=== PATIENT | female | born 1995 | race Caucasian/White ===

== ENCOUNTER 2022-04-18 09:44 | Outpatient (CLI) | payer OTHER, SELFPAY ==
--- NOTE | 2022-04-18 10:00 | CRLHL7_ITS ---
For Patients: As a result of the Century Cures Act, medical imaging exams and procedure reports are released immediately into your electronic medical record. You may view this report before your referring provider. If you have questions, please contact your health care provider. Indication: Otorrhea. Technique: CT of the temporal bones performed without IV contrast. Comparison: None relevant available at this institution. Findings: RIGHT: Opacification of the external auditory canal along the tympanic membrane. No adjacent osseous erosion. The tympanic membrane is not thickened. The mesotympanum is well aerated. The scutum is sharp. Ossicles are intact without evidence of erosion. The epitympanum and mastoid air cells appear clear. The inner ear structures including the cochlea, semicircular canals, vestibule and vestibular aqueduct appear unremarkable. Osseous IAC is intact. The path of the facial nerve canal is preserved. LEFT: Minimal cerumen within the external auditory canal. The tympanic membrane is not thickened. The mesotympanum is well aerated. The scutum is sharp. Ossicles are intact without evidence of erosion. The epitympanum and mastoid air cells appear clear. The inner ear structures including the cochlea, semicircular canals, vestibule and vestibular aqueduct appear unremarkable. Osseous IAC is intact. The path of the facial nerve canal is preserved. OTHER: The visualized portions of the brain, orbits and upper soft tissue neck are grossly negative. Impression: Right temporal bone: 1. Mild opacification of the external auditory canal near the tympanic membrane. No osseous erosion. Findings could represent cerumen impaction. Correlate with otoscopic examination. 2. Otherwise unremarkable. Left temporal bone: 1. Minimal external auditory canal cerumen. 2. Otherwise unremarkable. Please note that all CT scans at this facility use dose modulation, iterative reconstruction, and/or weight-based dosing when appropriate to reduce radiation dose to as low as reasonably achievable. Dictated by Quincy Senior MD @ 04/18/2022 12:12:54 PM (Electronically Signed)
== END 2022-04-18 09:45 | disposition home or self-care (01) ==
PROVIDERS: Visit Provider Otolaryngology
DX: H92.10 Otorrhea, unspecified ear (principal)
CPT/HCPCS: 70480

== ENCOUNTER 2022-04-20 10:33 | Outpatient (CLI) | payer OTHER, SELFPAY ==
--- NOTE | 2022-04-20 10:45 | CRLHL7_ITS ---
For Patients: As a result of the Century Cures Act, medical imaging exams and procedure reports are released immediately into your electronic medical record. You may view this report before your referring provider. If you have questions, please contact your health care provider. Indication: Enlarged lymph nodes Technique: Grayscale and color Doppler ultrasound of the submandibular space performed bilaterally. Comparison: Temporal bone CT April 18, 2002, however, this does not include the relevant anatomy. Findings: Mildly prominent submandibular lymph nodes are present bilaterally. On the right, the 2 largest lymph nodes measure 1.6 x 0.7 x 1.0 cm and 3.4 x 0.8 x 1.4 cm. On the left, the the 2 largest lymph nodes measuring 1.3 x 0.7 x 0.9 cm and 1.7 x 0.7 x 0.8 cm. Normal central fatty priyanka noted within these lymph nodes with normal internal vascularity. Impression: Mildly reactive bilateral submandibular lymph nodes. Dictated by Shayne Aguirre MD @ 04/20/2022 12:24:06 PM (Electronically Signed)
== END 2022-04-20 10:34 | disposition home or self-care (01) ==
LOC: US 10:34
PROVIDERS: Visit Provider Otolaryngology
DX: R59.9 Enlarged lymph nodes, unspecified (principal)
CPT/HCPCS: 76536

== ENCOUNTER 2022-09-20 09:15 | Outpatient (CLI) | payer OTHER, SELFPAY ==
--- NOTE | 2022-09-20 09:15 | CRLHL7_ITS ---
For Patients: As a result of the Century Cures Act, medical imaging exams and procedure reports are released immediately into your electronic medical record. You may view this report before your referring provider. If you have questions, please contact your health care provider. Indication: ENLARGED LYMPH NODES F/U Technique: Grayscale and color Doppler ultrasound of the submandibular spaces performed bilaterally. Comparison: 04/20/2022 Findings: Right submandibular lymph nodes measure 1.2 x 0.6 x 1.0 cm and 3.4 x 1.1 x 1.3 cm. Normal internal vascularity. Previously, these lymph nodes measured 1.6 x 0.7 x 1.0 cm and 3.4 x 0.8 x 1.4 cm. Left submandibular lymph nodes measure 1.1 x 0.8 x 1.5 cm and 1.1 x 0.7 x 1.0 cm. Normal internal vascularity. Previously, these lymph nodes measured 1.7 x 0.7 x 0.9 cm and 1.3 x 0.7 x 0.8 cm. Impression: Mildly prominent bilateral submandibular lymph nodes, right greater than left may be slightly decreased since the prior study. Dictated by Shayne Aguirre MD @ 09/20/2022 10:28:28 AM (Electronically Signed)
--- OUTSIDE RECORDS SUMMARY | 2022-09-20 09:18 | XMS_ITS | Continuity of Care Document ---
Author Name Unknown Organization [facility] Address [address] [place] [address] Phone Care Team Providers Care Sales Representative Sales Manager Name Role Phone Charlene Aj Unavailable Unavailable Allergies, Adverse Reactions, Alerts Substance Reaction Status Criticality No Known Allergies Active No Inform ation Medications Medication Instructions Dosage Effective Dates (start - stop) Status Comments SERTRALINE HCL (unknown strength) Not Available - Active VITAMIN D3 (unknown strength) Not Available - Active VITAMINS (unknown strength) Not Available - Active PROPRANOLOL HCL (unknown strength) Not Available - Active AZO BLADDER CONTROL (unknown strength) Not Available - Active COSENTYX SYRINGE (unknown strength) Not Available - Active ARMOUR THYROID (unknown strength) Not Available - Active TOPAMAX (unknown strength) Not Available - Active Procedures Procedure Date Office/Outpatient Visit,New, Mod 2020 X Ray Exam Entire Spine /3 Advance Directives Directive Yes / No Effective Date File Name No Information Encounters Encounter Description Practice Location Reason(s) For Visit Diagnoses Date Provider Providers Copied on Encounter Office/Outpat ient Visit,New, Mod [facility], [address], [place], [id number], [place] tel:[phone] [facility] Other intervertebral disc degeneration, lumbar regionOther spondylosis, thoracic regionAnkylosing spondylitis of thoracolumbar region 1 Marianna Chang. [facility], [address] [place] [address] [address], [facility] [place] [place], [id number] , [place]. tel:[phone] Referring Provider: Charlene Cabral, [facility] [address] [place] [address] [address], [place], [address] . tel:[phone] Family History Family Member Type Diagnosis Age At Onset No Information Payers Payer name Insurance type Covered republican ID Abraham RECIO (s) [id number] Social History Type Description Quantity Date Captured Comments Alcohol Use Details Unknown Caffeine Use Details Unknown Tobacco Use Status Current non-smoker Smoking Status Never smoker Non-Smoking Tobacco Use Details : No Details Available : No Details Available Sex Female Vital Signs Date / Time: Height Weight BMI Pulse Rate Blood Pressure Temperature Respiratory Rate Body Surface Area Head Circumference Head Circ. Percentile Wt./Biju. Percentile BMI percentile Pulse Ox Inhaled Ox 3:27 PM 71.00 in 67.676 kg (149.20 lbs) 20.8 1 kg/m eter (2) 97.20 F Chief Complaint And Reason For Visit No Information Reason For Referral Reason For Referral No Information Plan Of Treatment Date Type Action Status Future Order: Radiology Order PA /Lateral Full Spine (PALatFS), Ordered on: Ordered History Of Present Illness Encounter Date Complaint History Of Prese nt Illness No Information Functional Status Date Functional Assessmen t No Information Instructions Date Instruction Additional Infor mation No Information Assessments Type Assessment Date assessment Other intervertebral disc degene ration, lumbar region assessment Other spondylosis, thoracic yeni on assessment Ankylosing spondylitis of thorac olumbar region Patient Care Teams Name Effective Dates (start - stop) Status Members No Information
--- OUTSIDE RECORDS SUMMARY | 2022-09-20 09:18 | XMS_ITS | Continuity of Care Document ---
Author Name Unknown Organization [facility] Address [address] [place] [address], [place] [address]- Care Team Providers Care Sitecore Developer Name Role Phone None, None Primary Care Physician Encounter [facility] Date(s): 04/28/22 - 04/28/22 [facility] [address] [place] [address], [place] [address]- Encounter Diagnosis Need for hepatitis B vaccination(Discharge Diagnosis) - 04/28/22 Discharge Disposition: Routine Discharge Attending Physician: Jessie Duncan NP Admitting Physician: Jessie Duncan NP Allergies, Adverse Reactions, Alerts No Known Medication Allergies Immunizations Given and Recorded Vaccine Date Status Refusal Reason hepatitis B adult vaccine 04/28/22 Given Medications Cosentyx 150 mg/mL subcutaneous solution 150 mg, Subcutaneous, Every 4 Weeks, Maintenance, 02/25/22 14:32:00 EST Start Date: 02/25/22 Status: Ordered gabapentin 100 mg oral capsule 100 mg, = 1 Capsule, Orally, TID, Maintenance, 02/25/22 14:33:00 EST Start Date: 02/25/22 Status: Ordered LORazePAM 0.5 mg oral tablet 0.5 mg, = 1 Tablet, Orally, Q8H, PRN as needed for anxiety, Maintenance, 02/25/22 14:33:00 EST Start Date: 02/25/22 Status: Ordered Zoloft 100 mg oral tablet 100 mg, = 1 Tablet, Orally, Daily, Maintenance, 02/25/22 14:32:00 EST Start Date: 02/25/22 Status: Ordered Problem List Diagnosis Diagnosis Type Effective Dates Health Status Clinical Service Informant Need for hepatitis B vaccination Discharge Diagnosis 04/28/22 Non-Specified Social History Social History Type Response Smoking Status Never (less than 100 in lifetime) entered on: 03/11/22 Sex Female Patient Care team information Personnel Name: None, None Address: Address: NOT AVAILABLE [place]
--- OUTSIDE RECORDS SUMMARY | 2022-09-20 09:18 | XMS_ITS | Continuity of Care Document ---
Author Name Unknown Organization [facility] Address [address] [place] [address], [place] [address]- Care Team Providers Care Sheriff Deputy Name Role Phone None, None Primary Care Physician [phone] Encounter [facility] [id number] Date(s): 08/23/22 - 08/23/22 [facility] [address] [place] [address], [place] [address]- Encounter Diagnosis Left otitis media(Discharge Diagnosis) - 08/23/22 Tinnitus, bilateral(Discharge Diagnosis) - 08/23/22 Discharge Disposition: Routine Discharge Attending Physician: Rosi Patricio FNP Admitting Physician: Rosi Patricio FNP Allergies, Adverse Reactions, Alerts No Known Medication Allergies Assessment and Plan Extracted from: Title:AMB Primary Care Progress Note Author:Rosi Rojas FNP Date:08/23/22 1.??Left otitis media ?? H66 .92 antibiotics as directed.?? Ordered: azithromycin, Take 2 tablets day 1, then 1 tablet days 2 to 5, Orally, Daily, for 5 Days, Acute, Dispense: 6 Tablet, Refills: 0, Total Refills: 0, 08/23/22 14:59:00 EDT, 08/28/22 14:59:00 EDT, Pharmacy: [facility], Take 2 tablets day 1, then 1 tablet day... predniSONE, 20 mg, = 1 Tablet, Orally, Daily, for 5 Days, Acute, Dispense: 5 Tablet, Refills: 0, Total Refills: 0, 08/23/22 14:59:00 EDT, 08/28/22 14:59:00 EDT, Pharmacy: [facility], 1 Tablet Orally Daily,x5 Days, 180.3, cm, 08/13/22 14:39:00 EDT, [place]... CHARGE [id number] OV Est Intermed 20-29 min ?? 2.??Tinnitus, bilateral ?? H93.13 steroids as directed Ordered: azithromycin, Take 2 tablets day 1, then 1 tablet days 2 to 5, Orally, Daily, for 5 Days, Acute, Dispense: 6 Tablet, Refills: 0, Total Refills: 0, 08/23/22 14:59:00 EDT, 08/28/22 14:59:00 EDT, Pharmacy: [facility], Take 2 tablets day 1, then 1 tablet day... predniSONE, 20 mg, = 1 Tablet, Orally, Daily, for 5 Days, Acute, Dispense: 5 Tablet, Refills: 0, Total Refills: 0, 08/23/22 14:59:00 EDT, 08/28/22 14:59:00 EDT, Pharmacy: [facility], 1 Tablet Orally Daily,x5 Days, 180.3, cm, 08/13/22 14:39:00 EDT, [place]... CHARGE [id number] OV Est Intermed 20-29 min ?? fungal swab results expected within 30-42 days of date of exam, called and spoke with lab who said that it is in process discussed options with patient and will refer to local ENT, has appt with ENT in [place] 09/24 but if can get in sooner would like that appointment made with [facility] at [place] for 09/19/22, pt to see auricular therapist first and will f/u with ENT immediately after ?? Immunizations Given and Recorded Vaccine Date Status Refusal Reason hepatitis B adult vaccine 04/28/22 Given Medications acetic acid-hydrocortisone 2%-1% otic solution 3 Drop, Ears, Both, 4 Times Daily, for 7 Days, Acute, Dispense: 10 mL, Refills: 1, Total Refills: 1, 08/13/22 15:04:00 EDT, 08/27/22 15:04:00 EDT, Pharmacy: [facility], 3 Drop Ears, Both 4Times Daily,x7 Days, 180.3, cm, 08/13/22 14:39:00 E... Start Date: 08/13/22 Stop Date: 08/27/22 Status: Ordered Azithromycin 5 Day Dose Pack 250 mg oral tablet Take 2 tablets day 1, then 1 tablet days 2 to 5, Orally, Daily, for 5 Days, Acute, Dispense: 6 Tablet, Refills: 0, Total Refills: 0, 08/23/22 14:59:00 EDT, 08/28/22 14:59:00 EDT, Pharmacy: [facility], Take 2 tablets day 1, then 1 tablet day... Start Date: 08/23/22 Stop Date: 08/28/22 Status: Ordered Cosentyx 150 mg/mL subcutaneous solution 150 mg, Subcutaneous, Every 4 Weeks, Maintenance, 02/25/22 14:32:00 EST Start Date: 02/25/22 Status: Ordered Diflucan 150 mg oral tablet 150 mg, = 1 Tablet, Orally, ONCE, Soft Stop, Dispense: 5 Tablet, Refills: 0, Total Refills: 0, 1 tab orally every 3 days x 5 doses, 08/13/22 15:05:00 EDT, Pharmacy: [facility], 1 Tablet Orally ONCE,Instr:1 tab orally every 3 days x 5 doses,... Start Date: 08/13/22 Status: Ordered gabapentin 100 mg oral capsule 100 mg, = 1 Capsule, Orally, TID, Maintenance, 02/25/22 14:33:00 EST Start Date: 02/25/22 Status: Ordered LORazePAM 0.5 mg oral tablet 0.5 mg, = 1 Tablet, Orally, Q8H, PRN as needed for anxiety, Maintenance, 02/25/22 14:33:00 EST Start Date: 02/25/22 Status: Ordered predniSONE 20 mg oral tablet 20 mg, = 1 Tablet, Orally, Daily, for 5 Days, Acute, Dispense: 5 Tablet, Refills: 0, Total Refills:0, 08/23/22 14:59:00 EDT, 08/28/22 14:59:00 EDT, Pharmacy: [facility], 1 Tablet Orally Daily,x5 Days, 180.3, cm, 08/13/22 14:39:00 EDT, [place]... Start Date: 08/23/22 Stop Date: 08/28/22 Status: Ordered Zoloft 100 mg oral tablet 100 mg, = 1 Tablet, Orally, Daily, Maintenance, 02/25/22 14:32:00 EST Start Date: 02/25/22 Status: Ordered Problem List Diagnosis Diagnosis Type Effective Dates Health Status Cl inical Service Informant Left otitis media Discharge Diagnosis 08/23/22 Tinnitus, bilateral Discharge Diagnosis 08/23/22 Vital Signs Most recent to oldest [Reference Range]: 1 BMI Weight in kg 25.1 kg/m2 (08/23/22 3:09 PM) BSAM2 Weight in kg 2.02 m2 (08/23/22 3:09 PM) Height CM 180.3 cm (08/23/22 3:09 PM) [place] Body Weight 70.76 kg (08/23/22 3:09 PM) Respiratory Rate [14-20 br/min] 14 br/mi n (08/23/22 3:09 PM) Weight KG 81.5 kg (08/23/22 3:09 PM) Social History Social History Type Response Smoking Status Never (less than 100 in lifetime) entered on: 03/11/22 Sex Female Patient Care team information Personnel Name: None, None Address: Address: NOT AVAILABLE [place]
--- OUTSIDE RECORDS SUMMARY | 2022-09-20 09:18 | XMS_ITS | Continuity of Care Document ---
Author Name Unknown Organization [address] [address]- Care Team Providers Care Relief Master Name Role Phone None, None Primary Care Physician Encounter [facility] [id number] Date(s): 08/13/22 - 08/13/[address] [address] [phone] Encounter Diagnosis Fungal ear infection(Discharge Diagnosis) - 08/13/22 Otitis media(Discharge Diagnosis) - 08/13/22 Discharge Disposition: Routine Discharge Attending Physician: Ur[facility] Care [facility] Attending Physician: Piper Bruno NP Admitting Physician: [facility] Referring Physician: None, None Allergies, Adverse Reactions, Alerts No Known Medication Allergies Assessment and Plan Future Scheduled Tests Laboratory* Culture, Fungal w/ Stain - Ref Lab Only 08/13/22 Immunizations Given and Recorded Vaccine Date Status Refusal Reason hepatitis B adult vaccine 04/28/22 Given Medications acetic acid-hydrocortisone 2%-1% otic solution 3 Drop, Ears, Both, 4 Times Daily, for 7 Days, Acute, Dispense: 10 mL, Refills: 1, Total Refills: 1, 08/13/22 15:04:00 EDT, 08/27/22 15:04:00 EDT, Pharmacy: [facility], 3 Drop Ears, Both 4Times Daily,x7 Days, 180.3, cm, 08/13/22 14:39:00 E... Start Date: 08/13/22 Stop Date: 08/27/22 Status: Ordered Cosentyx 150 mg/mL subcutaneous solution 150 mg, Subcutaneous, Every 4 Weeks, Maintenance, 02/25/22 14:32:00 EST Start Date: 02/25/22 Status: Ordered Diflucan 150 mg oral tablet 150 mg, = 1 Tablet, Orally, ONCE, Soft Stop, Dispense: 5 Tablet, Refills: 0, Total Refills: 0, 1 tab orally every 3 days x 5 doses, 08/13/22 15:05:00 EDT, Pharmacy: [facility], 1 Tablet Orally ONCE,Instr:1 tab orally every 3 days x 5 doses,... Start Date: 08/13/22 Status: Ordered gabapentin 100 mg oral capsule 100 mg, = 1 Capsule, Orally, TID, Maintenance, 02/25/22 14:33:00 EST Start Date: 02/25/22 Status: Ordered linezolid 600 mg oral tablet 600 mg, = 1 Tablet, Orally, Q12H, for 10 Days, Acute, Dispense: 20 Tablet, Refills: 0, Total Refills: 0, 08/13/22 15:03:00 EDT, 08/23/22 15:03:00 EDT, Pharmacy: [facility], 1 Tablet [id number],x10 Days, 180.3, cm, 08/13/22 14:39:00 EDT, He... Start Date: 08/13/22 Stop Date: 08/23/22 Status: Ordered LORazePAM 0.5 mg oral tablet 0.5 mg, = 1 Tablet, Orally, Q8H, PRN as needed for anxiety, Maintenance, 02/25/22 14:33:00 EST Start Date: 02/25/22 Status: Ordered Zoloft 100 mg oral tablet 100 mg, = 1 Tablet, Orally, Daily, Maintenance, 02/25/22 14:32:00 EST Start Date: 02/25/22 Status: Ordered Problem List Diagnosis Diagnosis Type Effective Dates Health Status inical Service Informant Otitis media Discharge Diagnosis 08/13/22 Non-Specified Fungal ear infection Discharge Diagnosis 08/13/22 Non-Specified Vital Signs Most recent to oldest [Reference Range]: 1 BMI Weight in kg 24.9 kg/m2 (08/13/22 2:39 PM) BSAM2 Weight in kg 2.01 m2 (08/13/22 2:39 PM) Heart Rate [60-100 bpm] 101 bpm *HI* (08/13/22 2:39 PM) Height CM 180.3 cm (08/13/22 2:39 PM) [place] Body Weight 70.76 kg (08/13/22 2:39 PM) Oxygen Saturation [92-100 %] 98 % (08/13/22 2:39 PM) Temperature Nina [36.4-37.9 DegC] 36.7 De gC (08/13/22 2:39 PM) Temperature Far Calculated [97.6-100.3 D egF] 98.1 DegF (08/13/22 2:39 PM) Weight KG 80.9 kg (08/13/22 2:39 PM) Social History Social History Type Response Smoking Status Never (less than 100 in lifetime) entered on: 03/11/22 Sex Female Patient Care team information Care Team Personnel Name: Piper Bruno NP Position: OE: Urgent Care Physician Member Role: Attending Physician Address: Address: [facility] [address] [place] [address] [address] [place] [address] [place]
--- OUTSIDE RECORDS SUMMARY | 2022-09-20 09:18 | XMS_ITS | Continuity of Care Document ---
Author Name Unknown Organization [facility] Address [address] [place] [address] Phone Care Team Providers Care Heat And Frost Insulator Helper Name Role Phone Akosua Mccauley MD Unavailable Unavailable Allergies, Adverse Reactions, Alerts Substance Reaction Status Criticality No Known Allergies Active No Inform ation Medications Medication Instructions Dosage Effective Dates (start - stop) Status Comments Cosentyx Pen 150 mg/mL subcutaneous inject 2 milliliter by subcutaneous route every 4 weeks in the abdomen, thigh, or outer area of upper arm (rotate sites) 300 MG - Active Patient needs to follow up with new provider for future refills. gabapentin 100 mg capsule take 1 Capsule by oral route every day as needed 100 MG - Active lorazepam 0.5 mg tablet take 0.5 tablet by oral route every day as needed 0.25 MG - Active medical marijuana ORAL EACH - Active Zoloft 100 mg tablet take 1 tablet by oral route every day 100 MG - Active Cosentyx Pen 150 mg/mL subcutaneous inject 2 milliliter by subcutaneous route every 4 weeks in the abdomen, thigh, or outer area of upper arm (rotate sites) 300 MG - No Longer Active Patient needs to follow up with new provider for future refills. Procedures Procedure Date Office/Outpatient Visit, Est Office/Outpatient Visit, Est Routine Venipuncture Rbc Sed Rate, Nonautomated Assay Of Creatinine Transferase (Ast) (Sgot) CReactive Protein Complete Cbc, Automated Office/Outpatient Visit, New Records Request Advance Directives Directive Yes / No Effective Date File Name No Information Encounters Encounter Description Practice Location Reason(s) For Visit Diagnoses Date Provider Providers Copied on Encounter [facility] , [address], [place], [address], [place] tel:[phone] [facility] , No Information 3 [place] [place]. [facility] [address], [place], [address], [place]. tel:[phone] [facility] , [address], [place], [address], [place] tel:[phone] [facility] , No Information 3 Steve Walton. [facility] [address], [place], [address], [place]. tel:[phone] Office/Outpa tient Visit, Est [facility] , [address], [place], [address], [place] tel:[phone] Telehealth Psoriatic spondylitis (chief complaint)Mi dback pain (chief complaint)Mo nitor Chronic High Risk Meds (chief complaint) Psoriatic spondylitisO ther dorsalgiaOth er fdc (current) drug therapy 2 [place]. [facility] [address], [place], [address], [place]. tel:[phone] Referring Provider: Alexsander Slater, [facility] [address], [place], [address]. tel:[phone] Office/Outpa tient Visit, Est [facility] , [address], [place], [address], [place] tel:[phone] [facility] , Back pain (chief complaint)Ps oriatic spondylitis (chief complaint) Psoriatic spondylitisO ther dorsalgiaOth er long term care social worker (current) drug therapyLong term (current) use of non-steroida l anti-inflamm atories (NSAID) 1 [place]. [facility] [address], [place], [address], [place]. tel:[phone] Referring Provider: Alexsander Slater, [facility] [address], [place], [address]. tel:[phone] Office/Outpa tient Visit, New [facility] , [address], [place], [address], [place] tel:[phone] [facility] , Back pain (chief complaint) Psoriatic spondylitisO ther dorsalgiaOth er long term care social worker (current) drug therapy 1 [place]. [facility] [address], [place], [address], [place]. tel:[phone] Referring Provider: Alexsander Slater, [facility] [address], [place], [address]. tel:[phone] [facility] , [address], [place], [address], [place] tel:[phone] [facility] , No Information 1 [place]. [facility] [address], [place], [address], [place]. tel:[phone] Referring Provider: Alexsander Slater, [facility] [address], [place], [address]. tel:[phone] Family History Family Member Type Diagnosis Age At Onset Maternal uncle Problem psoriasis Sister Problem psoriasis Maternal grandfather Problem psoriasis Maternal aunt Problem psoriasis with arthropathy Immunizations Vaccine Date Status Comments COVID-19 Pfizer administered Note: 1 ; Source: Other Provider Payers Payer name Insurance type Covered libertarian ID Abraham matos(feroz Locke [id number] Social History Type Description Quantity Date Captured Comments Sex Female Smoking Status No Information Chief Complaint And Reason For Visit No Information Reason For Referral Reason For Referral No Information Plan Of Treatment Date Type Action Status Appointment Melissa Armstrong BOOKED History Of Present Illness Encounter Date Complaint History Of Prese nt Illness Psoriatic spondylitis Midback pain Monitor Chronic High Risk Meds Back pain Psoriatic spondylitis Back pain Functional Status Date Functional Assessmen t No Information Instructions Date Instruction Additional Infor mation Continue Cosentyx every 4 weeks. Related to Psoriatic spondylitis Continue treatment s trategies under the guidance of [facility]. Related to Other dorsalgia Safety monitoring la boratory studies will include occasional creatinine, AST and hgb/CBC. Related to senior living (current) use of non-steroidal anti-inflammatories (NSAID) Continue sulindac 20 0 mg twice daily, although option to decrease to as needed usage. Also, the patient has the option to switch from sulindac to flurbiprofen 100 mg twice daily.Continue physical treatment modalities as are beneficial, potentially to include acupuncture. Related to Other dorsalgia Continue Cosentyx th erapy under Dr. Winters' direction. Related to Psoriatic spondylitis Pursue trial of acet aminophen up to 3-4 g/day.After discussion of potential treatment options, risks and benefits, the patient and I are in agreement with pursuing a serial trial of NSAID agents, initially with sulindac and potentially moving on to flurbiprofen.Continue physical treatment modalities as are beneficial, potentially to include acupuncture. Related to Other dorsalgia [facility]. Related to Psoriatic spondylitis Assessments Type Assessment Date No Information Patient Care Teams Name Effective Dates (start - stop) Status Members No Information
--- OUTSIDE RECORDS SUMMARY | 2022-09-20 09:18 | XMS_ITS | Continuity of Care Document ---
Author Name Unknown Organization [facility] Address [address] [place] [address], [place] [address]- Care Team Providers Care Sec Accountant Name Role Phone None, None Primary Care Physician [phone] Encounter [facility] [id number] Date(s): 08/13/22 - 08/13/22 [facility] [address] [place] [address], [place] [address]- Discharge Disposition: Routine Discharge Attending Physician: Piper Bruno NP Admitting Physician: Piper Bruno NP Referring Physician: Piper Bruno NP Allergies, Adverse Reactions, Alerts No Known Medication Allergies Assessment and Plan Diagnostic Tests Pending * Miscellaneous Laboratory Test (Acute) 08/13/22 Future Scheduled Tests Laboratory* Culture, Fungal w/ Stain - Ref Lab Only 08/13/22 Immunizations Given and Recorded Vaccine Date Status Refusal Reason hepatitis B adult vaccine 04/28/22 Given Medications acetic acid-hydrocortisone 2%-1% otic solution 3 Drop, Ears, Both, 4 Times Daily, for 7 Days, Acute, Dispense: 10 mL, Refills: 1, Total Refills: 1, 08/13/22 15:04:00 EDT, 08/27/22 15:04:00 EDT, Pharmacy: [facility], 3 Drop Ears, Both 4Times [...] x 5 doses, 08/13/22 15:05:00 EDT, Pharmacy: [facility], 1 Tablet Orally ONCE,Instr:1 tab [...] 08/13/22 15:03:00 EDT, 08/23/22 15:03:00 EDT, Pharmacy: [facility], 1 Tablet [id number],x10 Days, 180.3, cm, 08/13/22 14:39:00 EDT, He... [...] Effective Dates Health Status Clinical Service Informant Encounter for general adult medical examination without abnormal findings 08/13/22 Non-Specified Social History Social History Type Response Smoking Status Never (less than 100 in lifetime) entered on: 03/11/22 Sex Female Patient Care team information Personnel Name: None, None Address: Address: NOT AVAILABLE [place]
== END 2022-09-20 09:16 | disposition home or self-care (01) ==
LOC: US 09:16
PROVIDERS: Visit Provider Otolaryngology
DX: R59.9 Enlarged lymph nodes, unspecified (principal)
CPT/HCPCS: 76536

== ENCOUNTER 2023-01-03 09:14 | Outpatient (CLI) | payer OTHER, SELFPAY ==
--- NOTE | 2023-01-03 09:15 | CRLHL7_ITS ---
For Patients: As a result of the Century Cures Act, medical imaging exams and procedure reports are released immediately into your electronic medical record. You may view this report before your referring provider. If you have questions, please contact your health care provider. ULTRASOUND-GUIDED RIGHT SUBMANDIBULAR LYMPH NODE BIOPSY CLINICAL HISTORY: Enlarged right submandibular lymph nodes COMPARISON STUDIES: 09/20/2022 TECHNIQUE: Real-time ultrasound with image documentation was used for targeting the right submandibular lymph node lesion. Core biopsy specimens were obtained using a Temno 18-gauge biopsy needle. CONSENT and TIME OUT: The procedure, risks, and alternatives were explained to the patient and a consent was signed. [place] Protocol was followed including pre-procedure verification that relevant information/documentation was available, reviewed and properly matched to the patient; consent accurate and complete; and equipment and supplies available. Time Out was conducted just prior to starting procedure to verify the four required elements: patient identity, correct side/site marked (if applicable), procedure, relevant images/results properly labeled and displayed (if applicable). PROCEDURE: The patient was positioned supine on the ultrasound table. The right submandibular skin was prepped with ChloraPrep. 6 cc of 1 percent lidocaine was used for local anesthesia. Core samples were obtained. The specimens were placed in 10% formalin and sent to the pathology department. Pressure was held on the biopsy site until all bleeding subsided. The skin incision was closed with Steri-Strips. An ice pack was positioned over the biopsy site. Post-biopsy instructions were reviewed with the patient, and a written copy was given to her. LATERALITY: Right submandibular space LESION: Mildly prominent right submandibular lymph node SUSPICION FOR MALIGNANCY: Low NUMBER OF SAMPLES: 5 IMPRESSION: Ultrasound-guided right submandibular lymph node biopsy. Dictated by Shayne Aguirre MD @ 01/03/2023 11:58:36 AM (Electronically Signed)
--- OUTSIDE RECORDS SUMMARY | 2023-01-03 09:18 | XMS_ITS | Continuity of Care Document ---
Author Name Unknown Organization [facility] Address [address] [place] [address], [place] [address]- Care Team Providers Care Storage Solutions Architect Name Role Phone None, None Primary Care Physician [phone] Encounter [place] Date(s): 10/10/22 - 10/10/22 [facility] [address] [place] [address], [place] [address]- Encounter Diagnosis Lymphadenopathy(Discharge Diagnosis) - 10/10/22 Discharge Disposition: Routine Discharge Attending Physician: Jessie Duncan NP Admitting Physician: Jessie Duncan NP Allergies, Adverse Reactions, Alerts No Known Medication Allergies Immunizations Given and Recorded Vaccine Date Status Refusal Reason hepatitis B adult vaccine 04/28/22 Given Medications clotrimazole 10 mg, Orally, 5 Times Daily, Maintenance, 10/10/22 11:03:00 AM EDT Start Date: 10/10/22 Status: Ordered Cosentyx 150 mg/mL subcutaneous solution 150 mg, Subcutaneous, Every 4 Weeks, Maintenance, 02/25/22 2:32:00 PM EST Start Date: 02/25/22 Status: Ordered gabapentin 100 mg oral capsule 100 mg, = 1 Capsule, Orally, TID, Maintenance, 02/25/22 2:33:00 PM EST Start Date: 02/25/22 Status: Ordered LORazePAM 0.5 mg oral tablet 0.5 mg, = 1 Tablet, Orally, Q8H, PRN as needed for anxiety, Maintenance, 02/25/22 2:33:00 PM EST Start Date: 02/25/22 Status: Ordered Zoloft 100 mg oral tablet 100 mg, = 1 Tablet, Orally, Daily, Maintenance, 02/25/22 2:32:00 PM EST Start Date: 02/25/22 Status: Ordered Problem List Diagnosis Diagnosis Type Effective Dates Health Status Cl inical Service Informant Lymphadenopathy Discharge Diagnosis 10/10/22 Vital Signs Most recent to oldest [Reference Range]: 1 BMI Weight in kg 25 kg/m2 (10/10/22 10:57 AM) BSAM2 Weight in kg 2.02 m2 (10/10/22 10:57 AM) Heart Rate [60-100 bpm] 98 bpm (10/10/22 10:57 AM) Height CM 180.3 cm (10/10/22 10:57 AM) [place] Body Weight 70.76 kg (10/10/22 10:57 AM) Oxygen Saturation [92-100 %] 99 % (10/10/22 10:57 AM) Temperature Nina [36.4-37.9 DegC] 36.2 De gC *LOW* (10/10/22 10:57 AM) Temperature Far Calculated [97.6-100.3 D egF] 97.2 DegF *LOW* (10/10/22 10:57 AM) Weight KG 81.2 kg (10/10/22 10:57 AM) Social History Social History Type Response Smoking Status Never (less than 100 in lifetime) entered on: 03/11/22 Sex Female Patient Care team information Personnel Name: None, None Address: Address: NOT AVAILABLE US
--- OUTSIDE RECORDS SUMMARY | 2023-01-03 09:18 | XMS_ITS | Continuity of Care Document ---
Author Name Unknown Organization [facility] Address [address] [place] [address], [place] [address]- Care Team Providers Care Die Maker Name Role Phone Navdeep Rodriguez Primary Care Physician Unavail able Encounter [facility] [id number] Date(s): 11/04/22 - 11/04/22 [facility] [address] [place] [address], [place] [address]- Encounter Diagnosis Nontoxic goiter(Discharge Diagnosis) - 11/04/22 Oral thrush(Discharge Diagnosis) - 11/04/22 Malabsorption(Discharge Diagnosis) - 11/04/22 Chronic diarrhea(Discharge Diagnosis) - 11/04/22 Iron deficiency anemia(Discharge Diagnosis) - 11/04/22 Discharge Disposition: Routine Discharge Attending Physician: Navdeep Rodriguez MD Admitting Physician: Navdeep Rodriguez MD Allergies, Adverse Reactions, Alerts No Known Medication Allergies Assessment and Plan Extracted from: Title:AMB Primary Care Progress Note Author:Navdeep Camarena MD Date:11/04/22 1.??Nontoxic goiter ?? E04.[address] biopsy in [place] 12/2022 will check thyroid labs including TPO to r/o Hashimotos given hx of autoimmune disorders Ordered: CBC w/Differential CHARGE 45415 OV Est Extend 30-39 min Comp Metabolic Panel Lipid Panel SerPl QN T3 Free SerPl QN LC T4 Free Direct SerPl QN TPOAb Ser QN LC TSH 3rd Gen SerPl QN ?? 2.??Oral thrush ?? B37.0 still present and not resolved with nystatin Patient requesting Dasia's magic potion which we can try If this fails, can try diflucan 100mg for 7 days ?? Ordered: CBC w/Differential CHARGE 68253 OV Est Extend 30-39 min Comp Metabolic Panel Lipid Panel SerPl QN ?? 3.??Malabsorption ?? K90.9 chronic conditions checking cbc, cmp, lipid panel and stool studies including lactoferrin and ova/parasites Ordered: CBC w/Differential CHARGE 12882 OV Est Extend 30-39 min Comp Metabolic Panel Lactoferrin, Stool LC Lipid Panel SerPl QN Occult Bld Stool O and P ?? 4.??Chronic diarrhea ?? K52.9 see above Ordered: CBC w/Differential CHARGE 80670 OV Est Extend 30-39 min Comp Metabolic Panel Lactoferrin, Stool LC Lipid Panel SerPl QN Occult Bld Stool O and P ?? 5.??Iron deficiency anemia ?? D50.9 Patient on PO supplementation but with malabsorption may be failing PO treatment will check levels including iron, ferritin, b12/folate if significantly low and symptomatic would need IV iron infusion ?? Ordered: B12 Level And Folate CHARGE 52782 OV Est Extend 30-39 min Ferritin SerPl QN Iron Profile ?? Orders: diphenhydrAMINE/HC/nystatin, See Instructions, Maintenance, Dispense: 250 mL, Refills: 0, Total Refills: 0, 1-2 tsp every 4-6 hours swish and gargle do not swallow, 11/04/22 14:35:00 EDT, Pharmacy: [facility], 1-2 tsp every 4-6 hours; swish and gargle; do not swallow... Future Scheduled Tests Laboratory* Stool O and P 11/04/22 Immunizations Given and Recorded Vaccine Date Status Refusal Reason hepatitis B adult vaccine 04/28/22 Given Medications clotrimazole 1% 4 drops in ear, Topical, TID, Maintenance, Dispense: 1 Each, 10/10/22 11:03:00 AM EDT Start Date: 10/10/22 Stop Date: 11/11/22 Status: Ordered Cosentyx 150 mg/mL subcutaneous solution 150 mg, Subcutaneous, Every 4 Weeks, Maintenance, 02/25/22 2:32:00 PM EST Start Date: 02/25/22 Status: Ordered Daily Multi Orally, Daily, Maintenance, 10/12/22 9:41:00 AM EDT Start Date: 10/12/22 Status: Ordered gabapentin 100 mg oral capsule 100 mg, = 1 Capsule, Orally, TID, Maintenance, 02/25/22 2:33:00 PM EST Start Date: 02/25/22 Status: Ordered LORazePAM 0.5 mg oral tablet 0.5 mg, = 1 Tablet, Orally, Q8H, PRN as needed for anxiety, Maintenance, 02/25/22 2:33:00 PM EST Start Date: 02/25/22 Status: Ordered Addie Magic Potion oral soln (compounded product) See Instructions, Maintenance, Dispense: 250 mL, Refills: 0, Total Refills: 0, 1-2 tsp every 4-6 hours swish and gargle no not swallow, 11/04/22 3:08:00 PM EDT, Pharmacy: [facility] [id number], 1-2tsp every 4-6 hours; swish and gargle; no not swallow, Compound, 180.3, cm, 11/04/22 14:00:00 EDT, Height CM, 80.9, kg, 11/04/22 14:04:00 EDT, Weight for Calculation Start Date: 11/04/22 Status: Ordered Addie Magic Potion oral soln (compounded product) See Instructions, Maintenance, Dispense: 250 mL, Refills: 0, Total Refills: 0, 1-2 tsp every 4-6 hours swish and gargle do not swallow, 11/04/22 2:35:00 PM EDT, Pharmacy: [facility], 1-2 tsp every 4-6 hours; swish and gargle; do not swallow, Compound, 180.3, cm, 11/04/22 14:00:00 EDT, Height CM, 80.9, kg, 11/04/22 14:04:00 EDT, Weight for Calculation Start Date: 11/04/22 Status: Ordered Zoloft 100 mg oral tablet 100 mg, = 1 Tablet, Orally, Daily, Maintenance, 02/25/22 2:32:00 PM EST Start Date: 02/25/22 Status: Ordered Problem List Condition Confirmation Course Effective Dates Status H ealth Status Informant Ankylosing spondylitis Confirmed Active Anxiety Confirmed Active Arthritis Confirmed Resolved Oral thrush Confirmed Active Chronic diarrhea Confirmed Active Malabsorption Confirmed Active Iron deficiency anemia Confirmed Active Enlarged lymph nodes Confirmed Active Fungal infection Confirmed Resolved Otomycosis of both ears Confirmed Active Otomycosis Confirmed Active Psoriatic arthritis Confirmed Active Nontoxic goiter Confirmed Active Diagnosis Diagnosis Type Effective Dates Health Status Clinical Service Informant Nontoxic goiter Discharge Diagnosis 11/04/22 Oral thrush Discharge Diagnosis 11/04/22 Malabsorption Discharge Diagnosis 11/04/22 Iron deficiency anemia Discharge Diagnosis 11/04/22 Chronic diarrhea Discharge Diagnosis 11/04/22 Procedures Procedure Date Related Diagnosis Body Site Status Valve 1 Completed 1Bladder surgery Vital Signs Most recent to oldest [Reference Range]: 1 BMI Weight in kg 24.9 kg/m2 (11/04/22 2:00 PM) BSAM2 Weight in kg 2.01 m2 (11/04/22 2:00 PM) Heart Rate [60-100 bpm] 88 bpm (11/04/22 2:00 PM) Height CM 180.3 cm (11/04/22 2:00 PM) [place] Body Weight 70.76 kg (11/04/22 2:00 PM) Method Heart Rate Pulse Oximeter (11/04/22 2:00 PM) Oxygen Saturation [92-100 %] 100 % (11/04/22 2:00 PM) Temperature Nina [36.4-37.9 DegC] 36.2 De gC *LOW* (11/04/22 2:00 PM) Temperature Far Calculated [97.6-100.3 D egF] 97.2 DegF *LOW* (11/04/22 2:00 PM) Temperature Method Tympanic (11/04/22 2:00 PM) Weight KG 80.9 kg (11/04/22 2:00 PM) Weight method Actual - Standing (11/04/22 2:00 PM) Social History Social History Type Response Smoking Status Never (less than 100 in lifetime) entered on: 03/11/22 Sex Female Patient Care team information Care Team Personnel Name: Navdeep Rodriguez MD Position: OE: PC Provider Family [facility] Member Role: Primary Care Physician Address: Address: [facility] [address] [place], [place] [address] Care Team Related Persons Name: KORY MEJIA
--- OUTSIDE RECORDS SUMMARY | 2023-01-03 09:18 | XMS_ITS | Continuity of Care Document ---
Author Name Unknown Organization [facility] Address [address] [place] [address], [place] [address]- Care Team Providers Care Earth Moving Technician Name Role Phone MichaelGayleNavdeep A Primary Care Physician Unavail able Encounter [facility] [id number] Date(s): 11/23/22 - 11/23/[address] [place] [address]- Encounter Diagnosis Preop testing(Discharge Diagnosis) - 11/18/22 Discharge Disposition: Routine Discharge Attending Physician: Oscar Watts MD Admitting Physician: Oscar Watts MD Allergies, Adverse Reactions, Alerts No Known Medication Allergies Assessment and Plan Future Scheduled Tests Laboratory* Stool O and P 11/04/22 Immunizations Given and Recorded Vaccine Date Status Refusal Reason hepatitis B adult vaccine 04/28/22 Given Medications cloNIDine Maintenance, 11/18/22 10:42:00 AM EDT Start Date: 11/18/22 Status: Ordered Cosentyx 150 mg/mL subcutaneous solution 150 mg, Subcutaneous, Every 4 Weeks, Maintenance, 02/25/22 2:32:00 PM EST Start Date: 02/25/22 Status: Ordered Daily Multi Orally, Daily, Maintenance, 10/12/22 9:41:00 AM EDT Start Date: 10/12/22 Status: Ordered LORazePAM 0.5 mg oral tablet 0.5 mg, = 1 Tablet, Orally, Q8H, PRN as needed for anxiety, Maintenance, 02/25/22 2:33:00 PM EST Start Date: 02/25/22 Status: Ordered Zoloft 100 mg oral tablet 150, Orally, Daily, Maintenance, 02/25/22 2:32:00 PM EST Start Date: 02/25/22 Status: Ordered Mental Status 11/23/22 Orientation Oriented x 3 11/18/22 Decreased Level Of Consciousness No Sedation No Depressed Cough or Gag Reflexes No Presence of Nausea and/or Vomiting No Presence of Trach or ETT No Presence of GI Tubes No Enteral Feedings No Decreased Bowel Sounds No Impaired Swallowing No Facial, Neck or Head Trauma No Past or Present Stroke No Inability to keep HOB elevated >=30% No Aspiration Risk Assessment Negative Problem List Condition Confirmation Course Effective Dates [...] Dates Health Status Cl inical Service Informant Preop testing Discharge Diagnosis 11/18/22 Non-Specified Procedures Procedure Date Related Diagnosis Body Site Status Valve 1 Completed 1Bladder surgery Vital Signs Most recent to oldest [Reference Range]: 1 2 3 BMI Weight in kg 24.3 kg/m2 (11/23/22 10:43 AM) 24.9 kg/m2 (11/18/22 10:31 AM) BSAM2 Weight in kg 1.99 m2 (11/23/22 10:43 AM) Blood Pressure [90-140/60-90 mmHg] 134/89mmHg (11/23/22 12:01 PM) 136/84mmHg (11/23/22 11:55 AM) 124/88mmHg (11/23/22 11:50 AM) Heart Rate [60-100 bpm] 71 bpm (11/23/22 12:01 PM) 73 bpm (11/23/22 11:55 AM) 83 bpm (11/23/22 11:50 AM) Height CM 180.3 cm (11/23/22 10:43 AM) 180.3 cm (11/18/22 10:31 AM) [place] Body Weight 70.76 kg (11/23/22 10:43 AM) 70.76 kg (11/18/22 10:31 AM) Mean Arterial Pressure #1 98 mmHg (11/23/22 12:01 PM) 109 mmHg (11/23/22 11:55 AM) 98 mmHg (11/23/22 11:50 AM) Mean Arterial Pressure #1 Calculated 104 mmHg (11/23/22 12:01 PM) 101 mmHg (11/23/22 11:55 AM) 100 mmHg (11/23/22 11:50 AM) Oxygen Saturation [92-100 %] 100 % (11/23/22 12:01 PM) 100 % (11/23/22 11:55 AM) 100 % (11/23/22 11:50 AM) Position Pacu Head of Bed Elevated (11/23/22 11:45 AM) Respiratory Rate [14-20 br/min] 16 br/min (11/23/22 12:01 PM) 16 br/min (11/23/22 11:55 AM) 16 br/min (11/23/22 11:50 AM) SA Diastolic Blood Pressure 75 mmHg mmHg (11/23/22:42 AM) 78 mmHg mmHg (11/23/22:38 AM) 70 mmHg mmHg (11/23/22:35 AM) SA Heart Rate 83 bpm bpm (11/23/22 11:40 AM) 76 bpm bpm (11/23/22:35 AM) 74 bpm bpm (11/23/22 11:30 AM) SA Oxygen Saturation 100 % % (11/23/22:40 AM) 99 % % (11/23/22:35 AM) 99 % % (11/23/22 11:30 AM) SA Pulse Rate 83 bpm bpm (11/23/22:40 AM) 76 bpm bpm (11/23/22:35 AM) 74 bpm bpm (11/23/22 11:30 AM) SA Respiratory Rate 18 br/min br/min (11/23/22:40 AM) 18 br/min br/min (11/23/22:35 AM) 10 br/min br/min (11/23/22 11:30 AM) SA Systolic Blood Pressure 123 mmHg mmHg (11/23/22 11:42 AM) 112 mmHg mmHg (11/23/22:38 AM) 111 mmHg mmHg (11/23/22 11:35 AM) Temperature Nina [36.4-37.9 DegC] 36.3 DegC *LOW* (11/23/22 11:45 AM) 36.8 DegC (11/23/22 10:40 AM) Temperature Far Calculated [97.6-100.3 DegF] 97.3 DegF *LOW* (11/23/22 11:45 AM) 98.2 DegF (11/23/22 10:40 AM) Weight KG 78.9 kg (11/23/22 10:43 AM) 80.9 kg (11/18/22 10:31 AM) Weight method Actual - Standing (11/23/22 10:43 AM) Social History Social History Type Response Smoking Status Never (less than 100 in lifetime) entered on: 03/11/22 Sex Female Hospital Discharge Instructions Patient Education 11/23/2022 11:58:37 MAC Anesthesia (CUSTOM) Monitored Anesthesia (MAC) 1. You should be assisted or accompanied when moving about for 24 hours related to impaired congnition or drowsiness. 2. Do not drive or operate machinery for 24 hours unless otherwise instructed per your doctor. 3. You may drink clear liquids (tea, 7-up, jello, water etc) or increase your diet as tolerated. Ifyou become nauseated, return to sips of clear liquids until resolved. If you continue to be nauseated/vomiting after 24 hours, contact your physician. Be aware that some pain medications prescribed may also cause nausea/vomiting. 4. No alcohol or smoking for 24 hours 5. If you develop problems urinating after 24 hours, please contact your surgeon or come to the emergency room. 6. Do not make personal, legal or business decisions for the next 24 hours. 7. Move slowly and with caution. Do not make sudden position changes. Sit or lie down if you feel dizzy. Avoid hot baths or hot tubs as they may increase dizziness. 11/23/2022 11:58:36 MAC Anesthesia (CUSTOM) Monitored Anesthesia (MAC) 1. You should be assisted or accompanied when moving about for 24 hours related to impaired congnition or drowsiness. 2. Do not drive or operate machinery for 24 hours unless otherwise instructed per your doctor. 3. You may drink clear liquids (tea, 7-up, jello, water etc) or increase your diet as tolerated. Ifyou become nauseated, return to sips of clear liquids until resolved. If you continue to be nauseated/vomiting after 24 hours, contact your physician. Be aware that some pain medications prescribed may also cause nausea/vomiting. 4. No alcohol or smoking for 24 hours 5. If you develop problems urinating after 24 hours, please contact your surgeon or come to the emergency room. 6. Do not make personal, legal or business decisions for the next 24 hours. 7. Move slowly and with caution. Do not make sudden position changes. Sit or lie down if you feel dizzy. Avoid hot baths or hot tubs as they may increase dizziness. 11/23/2022 11:43:20 Colonoscopy and EGD- [place] (CUSTOM) 1. After being discharged you should return home and relax. You may feel drowsy for 2 or 3 hours. You may return to your normal physical activities after 24 hours. 2. Eat a light lunch today and then resume normal diet starting with supper. You may want to start with soft foods and avoid citrus foods. Your throat may be a little numb from the medication that isused to spray the back of the throat. Please use caution when drinking thin liquids as not to choke. You may experience a slight sore throat. 3. No medications containing aspirin (aspirin, ibuprofen, aleve, advil) for two weeks as they may cause bleeding. You may be advised to avoid your arthritis medication also for 5 days. 4. Call the doctor or come to Emergency Room if significant abdominal pain. Some smears of blood may be noted on the toilet tissue when wiping. If you are passing clots of blood or lots of rectal bleeding please notify the doctor or come to the emergency room. 5. No driving or operating machinery until the following morning for risk of dizziness. 6. The office with normally notify you of any biopsy results in the next 2 weeks. You may call the office after this time to find any further information. 7. Laying on your left side may help any abdominal discomfort may have, such as cramping or gas pains. Nurse Progress note * Petra Diaz , RN: PERFORM, MODIFY Event Display: Nursing Notes Authored Date: [id number] Nursing Note Scheduled Surgical Procedures: 11/23/2022 12:15 - Colonscpy Diagnostic/Screen...Stefanie 11/23/2022 12:15 - EGD Diagnostic Allergies No Known Medication Allergies Height 180.3cm Weight Weight K.9 kg (11/04/22 14:00:00) Weight K.9 kg (10/12/22 09:40:00) Weight K.2 kg (10/10/22 10:57:00) BMI 24.9 Anesthesia History _ Past Medical History Ankylosing spondylitis Anxiety Chronic diarrhea Enlarged lymph nodes Iron deficiency anemia Malabsorption Nontoxic goiter Oral thrush Otomycosis Otomycosis of both ears Psoriatic arthritis Past Surgical History Valve: Home Medications (8) Active cloNIDine clotrimazole 1% 4 drops in ear, Topical, TID Cosentyx 150 mg/mL subcutaneous solution 150 mg, Subcutaneous, Every 4 Weeks Daily Multi , Orally, Daily LORazePAM 0.5 mg oral tablet 0.5 mg = 1 Tablet, PRN, Orally, Q8H Addie Magic Potion oral soln (compounded product) See Instructions, 1-2 tsp every 4-6 hoursswish and gargleno not swallow Addie Magic Potion oral soln (compounded product) See Instructions, 1-2 tsp every 4-6 hoursswish and gargledo not swallow Zoloft 100 mg oral tablet 150, Orally, Daily Inpatient Medications No qualifying data available Inpatient Medications No qualifying data available Labs Hematology: WBC: 5.6 K/uL (11/04/22 14:35:00) RBC: 4.63 M/uL (11/04/22 14:35:00) Hgb: 12.5 g/dl (11/04/22 14:35:00) Hct: 40.2 Percent (11/04/22 14:35:00) MCV: 86.8 fL (11/04/22 14:35:00) MCH: 27 pg (11/04/22 14:35:00) MCHC: 31.1 g/dl Low (11/04/22 14:35:00) RDW: 15.2 Percent High (11/04/22 14:35:00) Platelet: 285 K/uL (11/04/22 14:35:00) MPV: 11.7 fL High (11/04/22 14:35:00) Neutrophils %: 57.9 Percent (11/04/22 14:35:00) Lymphocytes %: 33 Percent (11/04/22 14:35:00) Monocytes %: 7.3 Percent (11/04/22 14:35:00) Eosinophils %: 0.9 Percent (11/04/22 14:35:00) Basophils %: 0.7 Percent (11/04/22 14:35:00) Absolute Immature Grans: 0.01 K/uL (11/04/22 14:35:00) Absolute Neutrophil: 3.2 K/uL (11/04/22 14:35:00) Absolute Lymphocyte: 1.8 K/uL (11/04/22 14:35:00) Absolute Monocyte: 0.4 K/uL (11/04/22 14:35:00) Absolute Eosinophil: 0 K/uL Low (11/04/22 14:35:00) Absolute Basophil: 0.04 K/uL (11/04/22 14:35:00) NRBC Prcnt: 0 % (11/04/22 14:35:00) Immature Gran: 0.2 Percent (11/04/22 14:35:00) Chemistry: Sodium SerPl QN: 139 mmol/L (11/04/22 14:35:00) Potassium SerPl QN: 4.1 mmol/L (11/04/22 14:35:00) Chloride SerPl QN: 103 mmol/L (11/04/22 14:35:00) Carbon Dioxide SerPl QN: 24 mmol/L (11/04/22 14:35:00) Anion Gap: 12 mEq/L High (11/04/22 14:35:00) BUN SerPl QN: 7 mg/dL (11/04/22 14:35:00) Creatinine SerPl QN: 0.61 mg/dL (11/04/22 14:35:00) Estimated GFR (CKD-EPI): 127 mL/min/1.73m2 (11/04/22 14:35:00) Glucose SerPl QN: 99 mg/dL (11/04/22 14:35:00) Calcium Total SerPl QN: 9.4 mg/dL (11/04/22 14:35:00) Alkaline Phos SerPl QN: 94.9 U/L (11/04/22 14:35:00) ALT SerPl QN: 11 IU/L (11/04/22 14:35:00) AST SerPl QN: 20 IU/L (11/04/22 14:35:00) Bilirubin Total SerPl QN: 0.2 mg/dL (11/04/22 14:35:00) Total Protein SerPl QN: 7.2 g/dl (11/04/22 14:35:00) Albumin SerPl QN: 4.37 g/dl (11/04/22 14:35:00) Cholesterol SerPl QN: 201 mg/dL High (11/04/22 14:35:00) Triglyceride SerPl QN: 111 mg/dL (11/04/22 14:35:00) HDL SerPl QN: 49 mg/dL (11/04/22 14:35:00) LDL Calculated QN: 130 mg/dL High (11/04/22 14:35:00) Iron SerPl QN: 31 Ug/dL Low (11/04/22 14:35:00) UIBC Aleksandra SerPl QN: 288 Ug/dL (11/04/22 14:35:00) TIBC Ser QN: 319 Ug/dL (11/04/22 14:35:00) % Saturation: 10 Percent Low (11/04/22 14:35:00) TSH 3rd Gen SerPl QN: 1.99 mIU/mL (11/04/22 14:35:00) T3 Free SerPl QN: 2.8 (11/04/22 14:35:00) T4 Free Direct SerPl QN: 1.34 ng/dL (11/04/22 14:35:00) TPO Ab QN: 16 (11/04/22 14:35:00) Ferritin SerPl QN: 17.5 ng/mL (11/04/22 14:35:00) Folate SerPl QN: >19.90 (11/04/22 14:35:00) Lactoferrin Fecal Qn.: <1.00 (11/04/22 15:50:00) Vitamin B12 SerPl QN: 407 ug/mL (11/04/22 14:35:00) All Other Labs: Occult Blood Stool: Negative (11/04/22 15:50:00) Fungus Cult Status: Final report Abnormal (08/13/22 17:00:00) Ova + Parasite Status: Final report (11/04/22 15:51:00) Diagnostics UCG ordered Electronically Signed on 11/18/22 10:44 EDT Petra Diaz , QUINN Note * Vanda Wayne RN: PERFORM Event Display: IP-Discharge Instructions/Medications Authored Date: [id number] Melissa Armstrong :1995 Visit Date:11/23/2022 Inpatient Discharge Instructions Your Care Team Admitting Physician - Oscar Watts MD Attending Physician - Oscar Watts MD Primary Care Physician - Navdeep Rodriguez MD Reason for Your Visit K52.9 Your Diagnosis Preop testing What to do next You Need to Follow Up After Discharge Follow Up with??Navdeep Rodriguez MD, [facility] When?? Where: [place] [address]- Care Needs After Discharge Patient Post-Acute Information ? Medications What How Much When Instructions Next Dose Unchanged cloNIDine Unchanged LORazePAM (LORazePAM 0.5 mg oral tablet) 1 tab(s) By mouth Every 8 hours as needed for as needed for anxiety Unchanged multivitamin with minerals (Daily Multi) By mouth Once a day Unchanged secukinumab (Cosentyx 150 mg/ mL subcutaneous solution) 150 Milligram Subcutaneous Every 4 Weeks Unchanged sertraline (Zoloft 100 mg oral tablet) 150 By mouth Once a day Allergies No Known Medication Allergies Problems Ongoing - Any problem that you are currently receiving treatment for. Ankylosing spondylitis Anxiety Chronic diarrhea Enlarged lymph nodes Iron deficiency anemia Malabsorption Nontoxic goiter Oral thrush Otomycosis Otomycosis of both ears Psoriatic arthritis Historical - Any problem that you are no longer receiving treatment for. Arthritis Fungal infection Discharge Order Signed By: Oscar Watts MD ?? Education Materials Monitored Anesthesia (MAC) ? 1. You should be assisted or accompanied when moving about for 24 hours related to impaired congnition or drowsiness. ? 2. Do not drive or operate machinery for 24 hours unless otherwise instructed per your doctor. ? 3. You may drink clear liquids (tea, 7-up, jello, water etc) or increase your diet as tolerated. Ifyou become nauseated, return to sips of clear liquids until resolved. If you continue to be nauseated/vomiting after 24 hours, contact your physician. Be aware that some pain medications prescribed may also cause nausea/vomiting. ? 4. No alcohol or smoking for 24 hours ? 5. If you develop problems urinating after 24 hours, please contact your surgeon or come to the emergency room. ? 6. Do not make personal, legal or business decisions for the next 24 hours. ? 7. Move slowly and with caution. Do not make sudden position changes. Sit or lie down if you feel dizzy. Avoid hot baths or hot tubs as they may increase dizziness. Monitored Anesthesia (MAC) ? 1. You should be assisted or accompanied when moving about for 24 hours related to impaired congnition or drowsiness. ? 2. Do not drive or operate machinery for 24 hours unless otherwise instructed per your doctor. ? 3. You may drink clear liquids (tea, 7-up, jello, water etc) or increase your diet as tolerated. Ifyou become nauseated, return to sips of clear liquids until resolved. If you continue to be nauseated/vomiting after 24 hours, contact your physician. Be aware that some pain medications prescribed may also cause nausea/vomiting. ? 4. No alcohol or smoking for 24 hours ? 5. If you develop problems urinating after 24 hours, please contact your surgeon or come to the emergency room. ? 6. Do not make personal, legal or business decisions for the next 24 hours. ? 7. Move slowly and with caution. Do not make sudden position changes. Sit or lie down if you feel dizzy. Avoid hot baths or hot tubs as they may increase dizziness. 1. After being discharged you should return home and relax. You may feel drowsy for 2 or 3 hours. You may return to your normal physical activities after 24 hours. ? 2. Eat a light lunch today and then resume normal diet starting with supper. You may want to start with soft foods and avoid citrus foods. Your throat may be a little numb from the medication that isused to spray the back of the throat. Please use caution when drinking thin liquids as not to choke. You may experience a slight sore throat. ? 3. No medications containing aspirin (aspirin, ibuprofen, aleve, advil) for two weeks as they may cause bleeding. You may be advised to avoid your arthritis medication also for 5 days. ? 4. Call the doctor or come to Emergency Room if significant abdominal pain. Some smears of blood may be noted on the toilet tissue when wiping. If you are passing clots of blood or lots of rectal bleeding please notify the doctor or come to the emergency room. ? 5. No driving or operating machinery until the following morning for risk of dizziness. ? 6. The office with normally notify you of any biopsy results in the next 2 weeks. You may call the office after this time to find any further information. ? 7. Laying on your left side may help any abdominal discomfort may have, such as cramping or gas pains. Patient Label ?? I have received this information and my questions have been answered. 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
--- OUTSIDE RECORDS SUMMARY | 2023-01-03 09:18 | XMS_ITS | Continuity of Care Document ---
Author Name Unknown Organization [facility] Address [address] [place] [address], [place] [address]- Care Team Providers Care Debubblizer Name Role Phone Navdeep Rodriguez Primary Care Physician Unavail able Encounter [facility] [id number] Date(s): 11/04/22 - 11/04/[address] [place] [address]- Discharge Disposition: Routine Discharge Attending Physician: Navdeep Rodriguez MD Admitting Physician: Navdeep Rodriguez MD Allergies, Adverse Reactions, Alerts No Known Medication Allergies Assessment and Plan Diagnostic Tests Pending * TPOAb Ser QN LC 11/04/22 * T3 Free SerPl QN 11/04/22 * Lactoferrin, Stool LC 11/04/22 * Ova + Parasite Exam 11/04/22 Future Scheduled Tests Laboratory* Stool O and [...] not swallow, 11/04/22 3:08:00 PM EDT, Pharmacy: [facility] [id number], 1-2tsp every 4-6 hours; swish and gargle; no not swallow, Compound, 180.3, cm, 11/04/22 14:00:00 EDT, Height CM, 80.9, kg, 11/04/22 14:04:00 EDT, Weight for Calculation Start Date: 11/04/22 Status: Ordered Addie Bravoic Potion oral soln (compounded product) See Instructions, Maintenance, Dispense: 250 mL, Refills: 0, Total Refills: 0, 1-2 tsp every 4-6 hours swish and gargle do not swallow, 11/04/22 2:35:00 PM EDT, Pharmacy: [id number], 1-2 tsp every 4-6 [...] Effective Dates Health Status Clinical Service Informant Chronic diarrhea 9/22/23 Non-Specified Oral thrush 11/04/22 Non-Specified Nontoxic goiter 11/04/22 Non-Specified Nontoxic goiter 11/04/22 Non-Specified Nontoxic goiter 11/04/22 Non-Specified Malabsorption 11/04/22 Non-Specified Oral thrush 11/04/22 Non-Specified Malabsorption 11/04/22 Non-Specified Oral thrush 11/04/22 Non-Specified Chronic diarrhea 11/04/22 Non-Specified Malabsorption 11/04/22 Non-Specified Iron deficiency anemia 11/04/22 Non-Specified Chronic diarrhea 11/04/22 Non-Specified Iron deficiency anemia 11/04/22 Non-Specified Iron deficiency anemia 11/04/22 Non-Specified Procedures Procedure Date Related Diagnosis Body Site Status Valve 1 Completed 1Bladder surgery Results Laboratory List Name Date Occult Bld (Stool Hemoccult) 11/04/22 .Estimated Glumerular Filteration Rate Auto Diff 11/04/22 B12 Level And Folate 11/04/22 CBC w/Differential 11/04/22 Comp Metabolic Panel 11/04/22 Ferritin SerPl QN (Ferritin level) Iron Profile 11/04/22 Lipid Panel SerPl QN 11/04/22 T4 Free Direct SerPl QN 11/04/22 TSH 3rd Gen SerPl QN 11/04/22 Most recent to oldest [Reference Range]: 1 UIBC Aleksandra SerPl QN [112-347 Ug/dL] 288 U g/dL (11/04/22 2:35 PM) Occult Blood Stool Negative (11/04/22 3:50 PM) Estimated GFR (CKD-EPI) [>=60 mL/min/1.7 3m2] 127 mL/min/1.73m2 (11/04/22 2:35 PM) Absolute Immature Grans [0.00-0.10 K/uL] 0.01 K/uL (11/04/22 2:35 PM) Anion Gap [3-11 mEq/L] 12 mEq/L *HI* (11/04/22 2:35 PM) Hct [36.0-48.0 Percent] 40.2 Percent (11/04/22 2:35 PM) Hgb [12.0-16.0 g/dl] 12.5 g/dl (11/04/22 2:35 PM) MCH [25.6-32.2 pg] 27.0 pg (11/04/22 2:35 PM) MCHC [32.2-35.5 g/dl] 31.1 g/dl *LOW* (11/04/22 2:35 PM) MCV [79.4-94.8 fL] 86.8 fL (11/04/22 2:35 PM) MPV [7.0-10.6 fL] 11.7 fL *HI* (11/04/22 2:35 PM) Platelet [150-450 K/uL] 285 K/uL (11/04/22 2:35 PM) RBC [3.93-5.22 M/uL] 4.63 M/uL (11/04/22 2:35 PM) RDW [11.7-14.4 Percent] 15.2 Percent *HI* (11/04/22 2:35 PM) TIBC Ser QN [250-450 Ug/dL] 319 Ug/dL (11/04/22 2:35 PM) WBC [4.0-10.0 K/uL] 5.6 K/uL (11/04/22 2:35 PM) ALT SerPl QN [0-33 IU/L] 11 IU/L (11/04/22 2:35 PM) Albumin SerPl QN [3.97-4.94 g/dl] 4.37 g /dl (11/04/22 2:35 PM) Alkaline Phos SerPl QN [35.0-104.0 U/L] 94.9 U/L (11/04/22 2:35 PM) AST SerPl QN [0-32 IU/L] 20 IU/L (11/04/22 2:35 PM) Creatinine SerPl QN [0.51-0.95 mg/dL] 0. 61 mg/dL (11/04/22 2:35 PM) Sodium SerPl QN [136-145 mmol/L] 139 mmo l/L (11/04/22 2:35 PM) Potassium SerPl QN [3.4-5.2 mmol/L] 4.1 mmol/L (11/04/22 2:35 PM) Chloride SerPl QN [98-107 mmol/L] 103 mm ol/L (11/04/22 2:35 PM) Carbon Dioxide SerPl QN [22-29 mmol/L] 2 4 mmol/L (11/04/22 2:35 PM) Glucose SerPl QN [74-106 mg/dL] 99 mg/dL (11/04/22 2:35 PM) BUN SerPl QN [6-20 mg/dL] 7 mg/dL (11/04/22 2:35 PM) Calcium Total SerPl QN [8.6-10.3 mg/dL] 9.4 mg/dL (11/04/22 2:35 PM) Bilirubin Total SerPl QN [0.0-1.2 mg/dL] 0.2 mg/dL (11/04/22 2:35 PM) Cholesterol SerPl QN [100-199 mg/dL] 201 mg/dL *HI* (11/04/22 2:35 PM) Total Protein SerPl QN [6.6-8.7 g/dl] 7. 2 g/dl (11/04/22 2:35 PM) Ferritin SerPl QN [13.0-150.0 ng/mL] 17. 5 ng/mL (11/04/22 2:35 PM) Folate SerPl QN [>=4.78 ng/mL] >19.90 ng /mL (11/04/22 2:35 PM) HDL SerPl QN [>=39 mg/dL] 49 mg/dL (11/04/22 2:35 PM) Iron SerPl QN [37-145 Ug/dL] 31 Ug/dL *LOW* (11/04/22 2:35 PM) % Saturation [20-55 Percent] 10 Percent *LOW* (11/04/22 2:35 PM) Triglyceride SerPl QN [<=150 mg/dL] 111 mg/dL (11/04/22 2:35 PM) LDL Calculated QN [0-99 mg/dL] 130 mg/dL *HI* (11/04/22 2:35 PM) T4 Free Direct SerPl QN [0.93-1.70 ng/dL ] 1.34 ng/dL (11/04/22 2:35 PM) TSH 3rd Gen SerPl QN [0.27-4.20 mIU/mL] 1.99 mIU/mL (11/04/22 2:35 PM) Vitamin B12 SerPl QN [232-1245 ug/mL] 40 7 ug/mL (11/04/22 2:35 PM) Neutrophils % [34.0-71.1 Percent] 57.9 P ercent (11/04/22 2:35 PM) Lymphocytes % [19.3-51.7 Percent] 33.0 P ercent (11/04/22 2:35 PM) Monocytes % [4.7-12.5 Percent] 7.3 Perce nt (11/04/22 2:35 PM) Eosinophils % [0.7-5.8 Percent] 0.9 Perc ent (11/04/22 2:35 PM) Basophils % [0.1-1.2 Percent] 0.7 Percen t (11/04/22 2:35 PM) Absolute Neutrophil [1.6-6.1 K/uL] 3.2 K /uL (11/04/22 2:35 PM) Absolute Lymphocyte [1.2-3.7 K/uL] 1.8 K /uL (11/04/22 2:35 PM) Absolute Monocyte [0.2-0.4 K/uL] 0.4 K/u L (11/04/22 2:35 PM) Absolute Eosinophil [0.9-5.5 K/uL] 0.0 K /uL *LOW* (11/04/22 2:35 PM) Absolute Basophil [0.00-0.30 K/uL] 0.04 K/uL (11/04/22 2:35 PM) Immature Gran [0.0-0.5 Percent] 0.2 Perc ent (11/04/22 2:35 PM) NRBC Prcnt [<=10 %] 0 % (11/04/22 2:35 PM) Social History Social History Type Response Smoking Status Never (less than 100 in lifetime) entered on: 03/11/22 Sex Female Patient Care team information Care Team Personnel Name: Navdeep Rodriguez MD Position: OE: PC Provider [facility] Member Role: Primary Care Physician Address: Address: [address] [address] [place] Care Team Related Persons Name: KORY MEJIA
--- OUTSIDE RECORDS SUMMARY | 2023-01-03 09:18 | XMS_ITS | Continuity of Care Document ---
Author Name Unknown Organization [facility] Address [address] [place] [address], [place] [address]- Care Team Providers Care Underwriter Mortgage Loan Name Role Phone Navdeep Rodriguez Primary Care Physician Unavail able Encounter [facility] [id number] Date(s): 11/25/22 - 11/25/22 [facility] [address] [place] [address], [place] [address]- Encounter Diagnosis Need for influenza vaccination(Discharge Diagnosis) - 11/25/22 Antibody response exam(Discharge Diagnosis) - 11/25/22 Discharge Disposition: Routine Discharge Attending Physician: Ursula Moore NP Admitting Physician: Ursula Moore NP Allergies, Adverse Reactions, Alerts No Known Medication Allergies Assessment and Plan Future Scheduled Tests Laboratory* Stool O and P 11/04/22 Immunizations Given and Recorded Vaccine Date Status Refusal Reason influenza virus vaccine, inactivated 11/25/22 Give n hepatitis B adult vaccine 04/28/22 Given Medications [...] Effective Dates Health Status Clinical Service Informant Antibody response exam Discharge Diagnosis 11/25/22 Non-Specified Need for influenza vaccination Discharge Diagnosis 11/25/22 Non-Specified Procedures Procedure Date Related Diagnosis Body Site Status Valve 1 Completed 1Bladder surgery Social History Social History Type Response Smoking Status Never (less than 100 in lifetime) entered on: 03/11/22 Sex Female Patient Care team information Care Team Personnel Name: Navdeep Rodriguez MD Position: OE: PC Provider [facility] Member Role: Primary Care Physician Address: Address: [address] Care Team Related Persons Name: KORY MEJIA Address: home [address] [place] [phone]
--- OUTSIDE RECORDS SUMMARY | 2023-01-03 09:18 | XMS_ITS | Continuity of Care Document ---
Author Name Unknown Organization [facility] Address [address] [place] [address], [place] [address]- Care Team Providers Care E Marketing Specialist Name Role Phone None, None Primary Care Physician [phone] Encounter [facility] [id number] Date(s): 10/12/22 - 10/12/22 [facility] [address] [place] [address] [place] [address]- Encounter Diagnosis Enlarged lymph nodes(Discharge Diagnosis) - 10/12/22 Otomycosis(Discharge Diagnosis) - 10/12/22 Malabsorption(Discharge Diagnosis) - 10/12/22 Nontoxic goiter(Discharge Diagnosis) - 10/12/22 Ankylosing spondylitis(Discharge Diagnosis) - 10/12/22 Psoriatic arthritis(Discharge Diagnosis) - 10/12/22 Oral thrush(Discharge Diagnosis) - 10/12/22 Discharge Disposition: Routine Discharge Attending Physician: Navdeep Rodriguez MD Admitting Physician: Navdeep Rodriguez MD Allergies, Adverse Reactions, Alerts No Known Medication Allergies Assessment and Plan Extracted from: Title:AMB Primary Care Progress Note Author:Navdeep Camarena MD Date:10/12/22 1.??Enlarged lymph nodes ?? R59.9 Reviewing records from ENT and US of bilateral submandibular LN's will order an US GUIDED FNA patient is currently non toxic but need to r/o if there is any thyroid malignancy present and agree with ent's assessment Ordered: CHARGE 36132 OV New Extend 45-59 min ?? 2.??Otomycosis ?? B36.9 currently on clotrimazole drops will refer to ENT here in town as she will be studying at [employer] Was previously seeing Dr. CONNOR GODFREY in [place] ears on exam do not appear infected but there is sclerosing ans scaring present from chronic infection ? Ordered: CHARGE 21523 OV New Extend 45-59 min ?? 3.??Malabsorption ?? K90.9 getting records and labs from PCP to review agree that this may be from chronic use of antibiotics but will review previous records to see what labs have been done and other potential causes she can continue to use probiotics for now ?? Ordered: CHARGE 87139 OV New Extend 45-59 min ?? 4.??Nontoxic goiter ?? E04.9 thyroid gland appears enlarged on exam states her thyroid levels have been normal which we will review from her records once we get them given hx of ankylosing spondylitis thoughts of potential Hashimotos thyroiditis and may consider getting thyroid antibody test next visit ?? Ordered: CHARGE 89541 OV New Extend 45-59 min ?? 5.??Ankylosing spondylitis ?? M45.9 no acute issues at this time will review records Ordered: CHARGE 91352 OV New Extend 45-59 min ?? 6.??Psoriatic arthritis ?? L40.50 Currently on biologic secukinumab no acute issues at this time Ordered: CHARGE 49470 OV New Extend 45-59 min ?? 7.??Oral thrush ?? B37.0 will prescribe nystatin oral suspension Ordered: nystatin, 200,000 Units, = 2 mL, Orally, 4 Times Daily, for 7 Days, Acute, Dispense: 56 mL, Refills: 0, Total Refills: 0, 10/12/22 12:15:00 EDT, 10/19/22 12:15:00 EDT, Pharmacy: [id number], 2 mL Orally 4 Times Daily,x7 Days, 180.3, cm, 10/12/22 9:40:... CHARGE 70829 OV New Extend 45-59 min ?? Immunizations Given and Recorded Vaccine Date [...] PM EST Start Date: 02/25/22 Status: Ordered nystatin 100,000 units/mL oral suspension 200,000 Units, = 2 mL, Orally, 4 Times Daily, for 7 Days, Acute, Dispense: 56 mL, Refills: 0, TotalRefills: 0, 10/12/22 12:15:00 PM EDT, 10/19/22 12:15:00 PM EDT, Pharmacy: [id number], 2 mL Orally 4 Times Daily,x7 Days, 180.3, cm, 10/12/22 9:40:00 EDT, Height CM, 79.9, kg, 10/12/22 9:47:00EDT, Weight for Calculation Start Date: 10/12/22 Stop Date: 10/19/22 Status: Ordered Zoloft 100 mg oral tablet 100 mg, = 1 Tablet, Orally, Daily, Maintenance, 02/25/22 2:32:00 PM EST Start Date: 02/25/22 Status: Ordered Problem List Condition Confirmation Course Effective Dates Status H ealth Status Informant Ankylosing spondylitis Confirmed Active Anxiety Confirmed Active Arthritis Confirmed Resolved Oral thrush Confirmed Active Malabsorption Confirmed Active Enlarged lymph nodes Confirmed Active Fungal infection Confirmed Resolved Otomycosis of both ears Confirmed Active Otomycosis Confirmed Active Psoriatic arthritis Confirmed Active Nontoxic goiter Confirmed Active Diagnosis Diagnosis Type Effective Dates Health Status Clinical Service Informant Enlarged lymph nodes Discharge Diagnosis 10/12/22 Malabsorption Discharge Diagnosis 10/12/22 Nontoxic goiter Discharge Diagnosis 10/12/22 Ankylosing spondylitis Discharge Diagnosis 10/12/22 Otomycosis Discharge Diagnosis 10/12/22 Psoriatic arthritis Discharge Diagnosis 10/12/22 Oral thrush Discharge Diagnosis 10/12/22 Procedures Procedure Date Related Diagnosis Body Site Status Valve 1 Completed 1Bladder surgery Vital Signs Most recent to oldest [Reference Range]: 1 BMI Weight in kg 24.6 kg/m2 (10/12/22 9:40 AM) BSAM2 Weight in kg 2 m2 (10/12/22 9:40 AM) Heart Rate [60-100 bpm] 92 bpm (10/12/22 9:40 AM) Height CM 180.3 cm (10/12/22 9:40 AM) [place] Body Weight 70.76 kg (10/12/22 9:40 AM) Method Heart Rate Pulse Oximeter (10/12/22 9:40 AM) Oxygen Saturation [92-100 %] 98 % (10/12/22 9:40 AM) Temperature Nina [36.4-37.9 DegC] 35.9 De gC *LOW* (10/12/22 9:40 AM) Temperature Far Calculated [97.6-100.3 D egF] 96.6 DegF *LOW* (10/12/22 9:40 AM) Temperature Method Tympanic (10/12/22 9:40 AM) Weight KG 79.9 kg (10/12/22 9:40 AM) Weight method Actual - Standing (10/12/22 9:40 AM) Social History Social History Type Response Smoking Status Never (less than 100 in lifetime) entered on: 03/11/22 Sex Female Patient Care team information Care Team Related Persons Name: KORY ARMSTRONG
--- OUTSIDE RECORDS SUMMARY | 2023-01-03 09:18 | XMS_ITS | Continuity of Care Document ---
Author Name Unknown Organization [facility] Address [address] [place] [address], [place] [address]- Care Team Providers Care Chemist Assistant Name Role Phone Navdeep Rodriguez Primary Care Physician Unavail able Encounter [facility] [id number] Date(s): 11/25/22 - 11/25/[address] [place] [address]- Discharge Disposition: Routine Discharge Attending Physician: Ursula Moore NP Admitting Physician: Ursula Moore NP Referring Physician: None, None Allergies, Adverse Reactions, Alerts No Known Medication Allergies Assessment and Plan Diagnostic Tests Pending * QuantiFERON-TB Gold LC 11/25/22 Future Scheduled Tests Laboratory* Stool O and [...] arthritis Confirmed Active Nontoxic goiter Confirmed Active Procedures Procedure Date Related Diagnosis Body Site Status Valve 1 Completed 1Bladder surgery Social History Social History Type Response Smoking Status Never (less than 100 in lifetime) entered on: 03/11/22 Sex Female Patient Care team information Care Team Personnel Name: Navdeep Rodriguez MD Position: OE: PC Provider [facility] Member Role: Primary Care Physician Address: Address: [address] Care Team Related Persons Name: KORY MEJIA Address: home [address] [place] [phone]
--- OUTSIDE RECORDS SUMMARY | 2023-01-03 09:18 | XMS_ITS | Continuity of Care Document ---
Author Name Unknown Organization [facility] Address [address] [place] [address], [place] [address]- Care Team Providers Care Pump Servicer Supervisor Name Role Phone Navdeep Rodriguez Primary Care Physician Unavail able Encounter [facility] [id number] Date(s): 11/21/22 - 11/21/[address] [place] [address]- [place] Discharge Disposition: Routine Discharge Attending Physician: Navdeep Rodriguez MD Admitting Physician: Navdeep Rodriguez MD Allergies, Adverse Reactions, Alerts No Known Medication Allergies Assessment and Plan Future Appointments Appointment Date:11/23/2022 12:15:00 PM Scheduled Provider: Location:[facility] Appointment Type:[facility] Future Scheduled Tests Laboratory* Stool O and P 11/04/22 Immunizations Given and Recorded Vaccine Date Status Refusal Reason hepatitis B adult vaccine 04/28/22 Given Medications cloNIDine Maintenance, 11/18/22 10:42:00 AM EDT Start Date: 11/18/22 Status: Ordered clotrimazole 1% 4 drops in ear, Topical, [...] not swallow, 11/04/22 3:08:00 PM EDT, Pharmacy: [facility] [id number], 1-2tsp every 4-6 hours; swish and gargle; [...] not swallow, 11/04/22 2:35:00 PM EDT, Pharmacy: [id number], 1-2 tsp every [...] Diagnosis Diagnosis Type Effective Dates Health Status Clini cuco Service Informant Preop testing 11/21/22 Non-Specified Procedures Procedure Date Related Diagnosis Body Site Status Valve 1 Completed 1Bladder surgery Results Laboratory List Name Date HCG Qualitative Ur 11/21/22 Most recent to oldest [Reference Range]: 1 Test Urine Negative 1 (11/21/22 9:12 AM) 1Interpretive Data: Note: First morning specimens are preferred for this test. The concentration of HCG in urine can be diluted by fluid intake causing false negative results. False negatives may alsooccur when the levels of HCG are below the sensitivity level of the test. When is still suspected, a first morning urine should be collected 48 hours later and tested. Social History Social History Type Response Smoking Status Never (less than 100 in lifetime) entered on: 03/11/22 Sex Female Patient Care team information Care Team Personnel Name: Navdeep Rodriguez MD Position: OE: PC Provider [facility] Member Role: Primary Care Physician Address: Address: [place] [id number] [address] Care Team Related Persons Name: FERCHO MEJIAILA Address: home [address] [place] [phone]
--- OUTSIDE RECORDS SUMMARY | 2023-01-03 09:19 | XMS_ITS | Continuity of Care Document ---
Author Name Unknown Organization [facility] Address [address] [place] [address] Phone Care Team Providers Care Supply Service Worker Name Role Phone Skyler Mccoy MD Unavailable Unavailable Allergies, Adverse Reactions, Alerts [...] up with new provider for future refills. medical marijuana ORAL EACH - Active lorazepam 0.5 mg tablet take 0.5 tablet by oral route every day as needed 0.25 MG - Active gabapentin 100 mg capsule take 1 Capsule by oral route every day as needed 100 MG - Active Zoloft 100 mg tablet take 1 tablet by oral route every day 100 MG - Active Procedures Procedure Date Office/Outpatient Visit, Est Office/Outpatient [...] Consultants , [address], [place], [address], [place] tel:[phone] [facility] , No Information 3 Nadine Holland. [facility] [address], [place], [address], [place]. tel:[phone] [facility] , [address], [place], [address], [place] tel:[phone] [facility] No Information 3 Martha Ramirez. [address], [address], [place], [address], [place]. tel:[phone] Office/Outpa tient Visit, Est [facility] , [address], [place], [address], [place] tel:[phone] Telehealth Psoriatic spondylitis (chief complaint)Mi dback pain (chief complaint)Mo nitor Chronic High Risk Meds (chief complaint) Psoriatic spondylitisO ther dorsalgiaOth er prison (current) drug therapy 2 [place]. [facility] [address], [place], [address], [place]. tel:[phone] Referring Provider: Alexsander Slater, [facility] [address], [place], [address]. tel:[phone] Office/Outpa tient Visit, Est [facility] , [address], [place], [address], [place] tel:[phone] [facility] , Back pain (chief complaint)Ps oriatic spondylitis (chief complaint) Psoriatic spondylitisO ther dorsalgiaOth er buttermaker helper (current) drug therapyLong term (current) use of non-steroida l anti-inflamm atories (NSAID) 1 [place]. [facility] [address], [place], [address], [place]. tel:[phone] Referring Provider: Alexsander Slater, [facility] [address], [place], [address]. tel:[phone] Office/Outpa tient Visit, New [facility] , [address], [place], [address], [place] tel:[phone] [facility] , Back pain (chief complaint) Psoriatic spondylitisO ther dorsalgiaOth er buttermaker helper (current) drug therapy 1 [place]. [facility] [address], [place], [address], [place]. tel:[phone] Referring Provider: Alexsander Slater, [facility] [address], [place], [address]. tel:[phone] [facility] , [address], [place], [address], [place] tel:[phone] [facility] , No Information 1 [place]. [facility] [address], [place], [address], [place]. tel:[phone] Referring Provider: Alexsander Slater, [facility] [address], [place], [address]. tel:[phone] Family History Family Member Type Diagnosis Age At Onset Maternal uncle Problem psoriasis Sister Problem psoriasis Maternal grandfather Problem psoriasis Maternal aunt Problem psoriasis with arthropathy Immunizations Vaccine Date Status Comments COVID-19 Pfizer administered Note: 1 ; Source: Other Provider Payers Payer name Insurance type Covered constitution party ID Abraham RECIO (s) [id number] Social History Type Description Quantity Date Captured Comments Alcohol Use Details Unknown Caffeine Use Details Unknown Tobacco Use Status No Information Smoking Status No Information Sex Female Chief Complaint And Reason For Visit No [...] occasional creatinine, AST and hgb/CBC. Related to nursing home (current) use of non-steroidal anti-inflammatories (NSAID) Continue Cosentyx th erapy under Dr. Winters' direction. Related to Psoriatic spondylitis Continue sulindac 20 0 mg twice daily, although option to decrease to as needed usage. Also, the patient has the option to switch from sulindac to flurbiprofen 100 mg twice daily.Continue physical treatment modalities as are beneficial, potentially to include acupuncture. Related to Other dorsalgia Pursue trial of acet aminophen up to [...]
--- OUTSIDE RECORDS SUMMARY | 2023-01-03 09:19 | XMS_ITS | Continuity of Care Document ---
Author Name Unknown Organization [facility] Address [address] [place] [address] Phone Care Team Providers Care Vice President Planning Name Role Phone Charlene Aj Unavailable Unavailable [...] [facility], [address], [place], [id number], [place] tel:[phone] [facility] Other intervertebral disc degeneration, lumbar regionOther spondylosis, thoracic regionAnkylosing spondylitis of thoracolumbar region 1 Marianna Chang. [facility], [address] [place] [address] [address], [facility] [place], [id number] , [place]. tel:[phone] Referring Provider: Charlene Cabral, [facility] [address] [place] [address] [address], [place], [address] . tel:[phone] Family History Family Member Type Diagnosis Age At Onset No Information Payers Payer name Insurance type Covered libertarian ID Abraham RECIO (s) [id number] Social History Type Description Quantity Date Captured [...]
== END 2023-01-03 09:15 | disposition home or self-care (01) ==
LOC: US 09:16
PROVIDERS: Visit Provider Otolaryngology
DX: R59.9 Enlarged lymph nodes, unspecified (principal)
CPT/HCPCS: 38505; 76942; 88305; 88341; 88342

== ENCOUNTER 2023-02-02 13:54 | Outpatient (CLI) | payer OTHER, SELFPAY ==
--- NOTE | 2023-02-02 14:00 | CRLHL7_ITS ---
For Patients: As a result of the Century Cures Act, medical imaging exams and procedure reports are released immediately into your electronic medical record. You may view this report before your referring provider. If you have questions, please contact your health care provider. INDICATION: Pelvic pain COMPARISON: None available. FINDINGS: Transvaginal and transabdominal ultrasound examination of the female pelvis was performed. Initial examination is performed with transabdominal technique and transvaginal technique is used for better visualization of the pelvic structures. The uterus is anteverted with no evidence of mass. It measures 8.0 x 4.8 x 3.3 cm. The endometrial lining is mildly increased in thickness at 9 mm. The right ovary is normal in appearance. The left ovary has a collapsed cyst with increased color Doppler flow consistent with a corpus luteum cyst, measuring 1.7 x 1.0 x 0.7 centimeters, of no clinical concern. The ovaries are normal in size, the right measuring 2.8 x 1.6 x 2.1 cm and the left measuring 3.6 x 3.2 x 2.0 cm. There is normal color and pulse doppler flow in both ovaries. There is no sign of free fluid in the pelvis. There is a cystic structure in the inferior anterior urinary bladder at the midline measuring 1.7 x 0.9 x 2.2 centimeters. This is probably a urachal cyst. IMPRESSION: 1.7 centimeter diameter collapsing cyst in the left ovary, probably a corpus luteum cyst. Normal appearance of the uterus and right ovary. Probable urachal cyst in the anterior inferior urinary bladder at the midline measuring 1.7 x 0.9 x 2.2 centimeters. Dictated by Lars Almonte MD @ 02/08/2023 10:51:38 PM (Electronically Signed)
== END 2023-02-02 13:55 | disposition home or self-care (01) ==
LOC: US 13:55
PROVIDERS: PCP Nurse Practitioner Adult Health; Visit Provider Nurse Practitioner Adult Health
DX: R10.2 Pelvic and perineal pain (principal); N83.202 Unspecified ovarian cyst, left side; N32.89 Other specified disorders of bladder; R10.31 Right lower quadrant pain
CPT/HCPCS: 76830; 76856; 93976

== ENCOUNTER 2023-08-07 12:19 | Outpatient (CLI) | payer OTHER, SELFPAY ==
--- NOTE | 2023-08-07 12:15 | CRLHL7_ITS ---
For Patients: As a result of the Century Cures Act, medical imaging exams and procedure reports are released immediately into your electronic medical record. You may view this report before your referring provider. If you have questions, please contact your health care provider. INDICATION: Enlarged lymph nodes. TECHNIQUE: Ultrasound of the soft tissues of the neck. Grayscale and color Doppler images. COMPARISON: 09/20/2022 ultrasound, 01/03/2023 ultrasound-guided biopsy. FINDINGS: 2.4 x 0.8 cm right level 2 lymph node with thickened cortex and preserved hilum. 2.0 x 0.7 cm left level 2 lymph node with thickened cortex and no hilum. Is unclear if these nodes correspond to any of the measured nodes on the 09/20/2022 study however the right sided node is probably the 1 that was biopsied. A couple additional bilateral lymph nodes on the 2022 study were not visible today. IMPRESSION: Mildly enlarged cervical lymph nodes bilaterally. Dictated by Edward Snow MD @ 08/08/2023 2:15:37 PM (Electronically Signed)
--- OUTSIDE RECORDS SUMMARY | 2023-08-07 12:21 | XMS_ITS | Clinical Summary ---
[facility] Organization [facility] Address [address] [place] [address] Care Team Providers Care Sewing Techniques Demonstrator Name Role Phone No Primary/Referring, Phy Primary Care Provider Unavailable Source Comments You are receiving this document as you are listed as the primary care provider,follow-up provider, or the patient has been referred to you for consultation.This is in compliance with the Medicare and[facility] EHR Incentive Program,which states Providers who transition their patient to another setting of careor provider of care or refers their patient to another provider of care shouldprovide summary care record for each transition of care or referral. [employer] Allergies No known active allergies Medications Medication Sig Dispensed Refills Start Date End Date Status COSENTYX SENSOREADY, 300 MG, 150 MG/ML SOAJ 04/13/2020 Ac tive sertraline (ZOLOFT) 100 MG tablet Take 100 mg by mouth daily. 04/13/2020 Active Active Problems Problem Noted Date Diagnosed Date Anxiety 10/13/2021 Psoriatic arthritis 10/13/2021 Immunizations Name Administration Dates Next Due 4vHPV (Gardasil) 01/22/2014,09/24/2013, 4 DTaP 07/31/2002 Flu Vac (3+ yrs) 11/02/2010, 0,12/07/2006,2005,12/18/2004,12/09/2003,01/13/2003 Flu Vac Preserv Free (3+yrs) 11/19/2019 HepA Ped/Adol (1-18 yrs) 07/30/2009,07/24/2007 HepB Adult (Engerix-B, 20+ y rs, 3 dose series) 10/27/2021,09/28/2021 HepB, Unspecified Formulation 04/27/1998, 998,1997 IPV (Polio) 07/31/2002 Influenza [id number] 01/01/2009 Influenza IIV4 (Quadrivalent ) 0.5mL (16903) 09/28/2021,11/10/2020 Influenza Vaccine TIV, Nasal 12/11/2007 JE (IXIARO) 10/20/2021,10/13/2021 MCV4 (Menactra) 08/06/2015,07/30/2009 MMR 07/31/2002 Menb (Trumenba) 11/01/2021,01/08/2016,08/06/2015 Moderna Monovalent 12+ 04/07/2021 Pfizer Bivalent 12+ 10/27/2021 Pfizer Monovalent 12+ Purple Top 09/28/2020,02/0 02/2020,02/24/2020 Rabies 11/10/2021,10/20/2021,10/13/2021 Tdap 08/23/2019,07/30/2009 Typhoid (Typhim Vi, IM) 10/13/2021 Varicella 07/24/2007 Social History Tobacco Use Types Packs/Day Years Used Date Smoking Tobacco: Never Assessed Sex and Gender Information Value Date Recorded Sex Assigned at Not on file Gender Identity Not on file Sexual Orientation Not on file Last Filed Vital Signs Vital Sign Reading Time Taken Comments Blood Pressure 149/101 10/13/2021 10:08 AM CDT Pulse 104 10/13/2021 10:08 AM CDT Temperature 36.9 ??C (98.4 ??F) 04/23/2020 8:32 PM CS T Respiratory Rate 18 04/23/2020 8:32 PM DATA SERVICES DEVELOPER Oxygen Saturation 100% 04/23/2020 8:32 PM DATA SERVICES DEVELOPER Inhaled Oxygen Concentration - - Weight 76.2 kg (168 lb) 10/13/2021 10:08 AM CDT 170.8lb Height 180.3 cm (5' 11) 10/13/2021 10:08 AM CDT Body Mass Index 23.43 10/13/2021 10:08 AM CDT Plan of Treatment Health Maintenance Due Date Last Done Comments Cervical Cancer Screening Due 1997 Hep C Screening (Preventive Services) 1997 IPV (Polio) (2 of 3 - 4-dose series) 08/28/2002 07/31/2002 Varicella (2 of 2 - 2-dose childhood series) 01/08/2008 07/24/2007 HIV Screening (Preventive Services) 2013 Adult Preventive Visit 07/26/2015 COVID-19 Vaccine ( season) 2022 10/27/2021, 04/07/2021, 09/28/2020, Additional history exists Influenza (Season Ended) 2023 022, 11/10/2020, 11/19/2019, Additional history exists DTaP/Tdap/Td (4 - Tdap) 08/22/2029 08/23/19 20, 07/30/2009, 07/31/2002 Zoster/Shingles (1 of 2) 07/26/2047 HepA Completed 07/30/2009, 07/24/2007 HPV Vaccine Completed 01/22/2014, 09/13, 07/23/2013 MCV4 Completed 08/06/2015, 07/30/2009 HepB Completed 10/27/2021, 09/13, 04/27/1998, Additional history exists Hib Aged Out No longer eligi ble based on patient's age to complete this topic Pneumococcal Aged Out No longer eligi ble based on patient's age to complete this topic Care Teams Sewing Techniques Demonstrator Relationship Specialty Start Date End Date No Primary/Referring, Yoony PCP - General 04/23/20
--- OUTSIDE RECORDS SUMMARY | 2023-08-07 12:22 | XMS_ITS | Continuity of Care Document ---
Author Organization [facility] Child an d Family [facility], Main Office Address [address] [place] [address] Assessment Encounter Date Assessment Date Assessment LastModified by Organization Details LastModified Time 08/07/2023 08/07/2023 28-year-old woman with a history of psoriatic spondylitis and anxiety here for preventative exam. [facility] SENIOR COMMUNICATIONS SPECIALIST [email or web address] Not available 08/07/2023 12:34:58 Plan of Treatment Reminders Order Date Submit Date Provider Last Modified By Organization Details Last Modified Time Details Appointments [facility]LL[facility] 45 2023 09:30A M Sarah Odell Not available Not available Not available Lab CBC w/ auto diff 2023 024 ATHENAFAX [facility], [address] [place] [address] [place], [address], 08/07/2023 11:42:17 ferritin , serum or plasma 2023 024 KASIE [facility], [address] [place], [address], 08/07/2023 11:41:51 T3, total, serum 2023 024 KASIE [facility], [address], [place], [address], 08/07/2023 11:42:31 T4, total, serum 2023 024 KASIE [facility], [address] [place], [address], 08/07/2023 11:42:49 CMP, serum or plasma 2023 [facility], [address], [place], [address], 08/07/2023 11:43:29 lipid panel, serum 2023 [facility], [address], [place], [address], 08/07/2023 11:44:10 HbA1c (hemoglo bin A1c), blood 2023 [facility], [address], [place], [address], 08/07/2023 11:43:49 vitamin D, 25-hydro xy, total, serum 2023 [facility], [address], [place], [address], 08/07/2023 11:42:11 Referral None recorded . Procedures None recorded . Surgeries None recorded . Imaging None recorded . Medication Orders cycloben zaprine 10 mg tablet 2023 [id number], [address] [place], [address], 08/07/2023 12:47:23 clonidin e HCl 0.1 mg tablet 2023 [facility], [address] [place], [address], 08/07/2023 12:44:14 lorazepa m 2 mg tablet 2023 024 [facility], [address] [place], [address], 08/07/2023 12:44:15 Patient TargetsNo targets recorded. Patient InstructionsNo instructions recorded. 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 SIBO. Referring Physician: Sarah Odell, Family Medicine, Encounter Date: 09/29/2022 Diagnostic Radiologist Refer ral for Right lower quadrant pain Please call pt to schedule pelvic ultrasound for right lower quadrant abdominal pain ? ovarian cyst. Please schedule ABILIO. [place] the end of [place]. Thank you! Referring Physician: Sarah Odell, [facility] Medicine, Encounter Date: 01/30/2023 Problems Name Status Onset Date Resolution Date Notes Provider Name and Address Organization Details Recorded Time Ankylosing spondylitis Active 2021 Not Available [facility] 3 12:54:36 Generalized anxiety disorder Active 2021 Not Available [facility] 3 12:54:36 Fatigue Active Fatigue; IsAcute: Unspecified Deleted: 0 Not Available [facility] 3 12:54:36 Goiter Active Goiter; IsAcute: Unspecified Deleted: 0 Not Available [facility] 3 12:54:36 Anxiety Active Anxiety; IsAcute: Unspecified Deleted: 0 Not Available [facility] 3 12:54:36 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 sis; IsAcute: Unspecified Deleted: 0 Not Available [facility] 3 12:54:36 Vitamin D deficiency Active Vitamin D deficiency; IsAcute: Unspecified Deleted: 0 Not Available [facility] 3 12:54:36 Hypothyroidism Active Hypothyroi di sm; IsAcute: Unspecified Deleted: 0 Not Available [facility] 3 12:54:36 Vegan Active Strict vegetarian diet; IsAcute: Unspecified Deleted: 0 Not Available [facility] 3 12:54:36 Psoriatic arthritis with spine involvement Active Psoriatic arthritis with spine involvement; IsAcute: Unspecified Deleted: 0 Not Available [facility] 3 12:54:36 Problem Notes None recorded. Medical Equipment None Reported. Allergies No known drug allergies Medications Name Sig Start Date Stop Date Status Note LastModified by Organization Details LastModified Time Naltrexon e liquid suspensio n 1 ml po qd x one week, then two mls po qd x one week, then 3mls po qd x one week, then increase to 4.5mg capsules 07/26 completed Not Available Not Available Not Available Kinyarwanda encephali tis vaccine please administ er for travel in [place] 09/23 completed Not Available Not Available Not Available Naltrexon e 4.5mg one po qd. Start after weaning up using liquid Naltrexo ne for 3 weeks 07/26 completed medical cannabis instead Not Available Not Available Not Available cyclobenz aprine 10 mg tablet one po hs prn muscle spasms 2023 active Not Available Not Available Not Avai lable Lackey Thyroid 60 mg tablet TAKE 1 TABLET BY MOUTH EVERY DAY 04/27 completed Not Available Not Available Not Available fluconazo le 100 mg tablet TAKE 1 TABLET BY MOUTH EVERY DAY FOR 7 DAYS active Not Available Not Available No t Available nystatin 100,000 unit/mL oral suspensio n TAKE 2 ML BY MOUTH 4 TIMES DAILY FOR 7 DAYS active Not Available Not Available No t Available clonidine HCl 0.1 mg tablet 1-2 po BID prn anxiety rescue 2023 active Not Available Not Available Not Avai lable azithromy deonte 250 mg tablet TAKE 2 TABLETS BY MOUTH ON DAY 1, AND THEN TAKE 1 TABLET BY MOUTH ONCE A DAY ON DAY 2 THROUGH DAY 5 09/23 completed Not Available Not Available Not Available fluconazo le 150 mg tablet TAKE ONE TABLET TODAY AND THEN AGAIN IN 72 HOURS IF SYMPTOMS ARE STILL PRESENT active Not Available Not Available No t Available atovaquon e 250 mg-progua nil 100 mg tablet PLEASE SEE ATTACHED FOR DETAILED DIRECTIO NS 09/23 completed Not Available Not Available Not Available prednison e 20 mg tablet TAKE 1 TABLET BY MOUTH ONCE DAILY FOR 5 DAYS 09/23 completed Not Available Not Available Not Available sertralin e 100 mg tablet TAKE 1 AND 1/2 TAB BY MOUTH DAILY active Not Available Not Available No t Available doxycycli ne monohydra te 100 mg tablet TAKE 1 TABLET BY MOUTH TWICE DAILY FOR 7 DAYS 09/23 completed Not Available Not Available Not Available propranol ol 40 mg tablet TAKE 1 TABLET BY MOUTH TWICE DAILY NEEDED FOR ANXIETY 08/06 completed Not Available Not Available Not Available lorazepam 0.5 mg tablet TAKE HALF A TABLET BY MOUTH ONCE DAILY NEEDED FOR ANXIETY RESCUE 08/06 completed Not Available Not Available Not Available linezolid 600 mg tablet TAKE 1 TABLET BY MOUTH EVERY 12 HOURS FOR 10 DAYS 09/23 completed Not Available Not Available Not Available hydrocort isone-melany tic acid 1 %-2 % ear drops INSTILL 3 DROPS 4 TIMES DAILY INTO AFFECTED EAR(S) FOR 7 DAYS 08/06 completed Not Available Not Available Not Available lorazepam 2 mg tablet one po qd prn severe anxiety 2023 active Not Available Not Available Not Avai lable clotrimaz ole 1 % topical solution USE 4 DROPS TO EARS THREE TIMES A DAY FOR 3 WEEKS. 08/06 completed Not Available Not Available Not Available gabapenti n 100 mg capsule TAKE 1-2 CAPUSLES BY MOUTH THREE TIMES DAILY NEEDED FOR ANXIETY RESCUE 08/06 completed Not Available Not Available Not Available propranol ol 20 mg tablet TAKE 1 TABLET BY MOUTH 3 TIMES A DAY NEEDED FOR ANXIETY 08/06 completed Not Available Not Available Not Available sertralin e 50 mg tablet TAKE HALF TABLET BY MOUTH DAILY X 1 WEEK,THE N 2 TABLETS DAILY. 07/26 completed Not Available Not Available Not Available cholecalc iferol (vitamin D3) 125 mcg (5,000 unit) capsule TAKE 1 CAPSULE BY MOUTH ONCE PER WEEK, THEN CHANGE TO 2,000 IU DAILY. active Not Available Not Available No t Available sulindac 200 mg tablet TAKE 1 TABLET BY MOUTH TWICE A DAY WITH FOOD 04/27 completed Not Available Not Available Not Available amoxicill in 875 mg-potass ium clavulana te 125 mg tablet TAKE 1 TABLET BY MOUTH TWICE A DAY FOR 7 DAYS 08/06 completed Not Available Not Available Not Available azithromy deonte 500 mg tablet TAKE 1 TABLET BY MOUTH EVERY DAY FOR 3 DAYS 09/23 completed Not Available Not Available Not Available ciproflox acin 0.3 %-dexamet hasone 0.1 % ear drops,ben pension INSTILL 4 DROPS TWICE DAILY INTO RIGHT EAR FOR 7 DAYS 09/23 completed Not Available Not Available Not Available cholecalc iferol (vitamin D3) 1,250 mcg (50,000 unit) capsule TAKE 1 CAPSULE BY MOUTH ONCE A WEEK, THEN SWITCH TO 2000 UNITS DAILY 08/06 completed Not Available Not Available Not Available Cosentyx Pen 300 mg/2 Pens (150 mg/mL) subcutane ous Inject 2 mL every 4 weeks by subcutan eous route. active Not Available Not Available No t Available Vitals Date Recorded Body height Heart rate Respiratory rate Body mass index (BMI) Body weight Body temperature Systolic blood pressure Diastolic blood pressure Provider Name and Address Organization Details Last Updated DateTime 4 180.2 cm 78 /min 18 /min 24.1 kg/m2 62603.6 1 g 98.3 [degF] 148 mm[Hg] 98 mm[Hg] Kaylie Adkins [facility] 4 10:37:44 Social History Question Answer Notes LastModified by Organizat ion Details LastModified Time Tobacco Smoking Status [facility]30[facility]21 10:15:46 Are You Currently Employed? No [email or web address] Information not available 09/23/2022 What Is The Highest Grade Or Level Of School You Have Completed Or The Highest Degree You Have Received? [id number] In [employer] [email or web address] Information not available 09/23/2022 What Is Your Relationship Status? Single [email or web address] Information not available 09/23/2022 Are You Sexually Active? No Sexual Preference Female [email or web address] Information not available 09/23/2022 Are You Passively Exposed To Smoke? No Information not available 04/27/2021 Are There Any Smokers In Your House? No Information not available 04/27/2021 Are You Currently In School? Yes [email or web address] Information not available 09/23/2022 Sex: Unknown Functional Status None recorded. Mental Status None recorded. Family History Relationship Description Onset Age of this Age Resolved Age Notes Notes:MGM: HTN, hyperlipidem iaPsoriasis---sister, momAnxiety---mom Medical History No medical history recorded. Gynecological HistoryNo gynecological history recorded. Obstetrics History GPAL:G 0 P 0 0 0 0 Immunizations Vaccine Type Date Status Provider Name and Address Organization Details Recorded Time SARS-COV-2 (COVID-19) vaccine, UNSPECIFIED 01/13/2023 angel seymour [facility] 01/17/2023 17:39:28 Past Encounters Encounter ID Performer Location Encounter Start Date Encounter Closed Date Diagnosis/Indication Diagnosis SNOMED-CT Code [id number] Sarah Odell NP, S Main Office [address] [place] [address] 08/07/2023 10:29:49 08/07/2023 12:26:31 Active or passive immunization 889451829 Adult heal th examination 597975380 Iron deficiency 71126545 Vitamin D deficiency 347 90435 Finding of vitamin B12 level 228609896 Goiter 4680505 Long-term drug therapy 049949273 Family his tory of diabetes mellitus 292452294 Hyperlipidemia 58367330 Generalize d anxiety disorder 63357498 Psoriatic arthritis with spine involvement 108908177 Health Concerns Section Related Observation LastModified by Organization Detai ls LastModified Time None Recorded Concern Status LastModified by Organization Details LastModified Time None Recorded Payers Encounter Date Sequence Insurance Name Policy Number Policy Kasper Covered Member ID Kasper Member ID Guarantor Name 08/07/2023 1 [facility] [id number] Carin Armstrong [id number] Carin Armstrong Notes Date Note Type Note Provider Name and Address Organization Details Recorded Time 08/07/2023 text/html HPI Notes: Jeane comes in today for preventative exam and follow-up on chronic conditions including anxiety and psoriatic spondylitis. She also continues to deal with thrush related to long-term use of antibiotics for a stubborn otitis externa last year. She reports that she recently was on amoxicillin for bronchitis that was not getting better after 10 days. She continues with mushy stools and ongoing/thrush. She has an appointment with her GI specialist tomorrow to follow-up on this and ask for advice about the thrush. She is taking probiotics and eating yogurt daily. Jeane feels that her daily anxiety is under very good control with sertraline at 150 mg. She has clonidine for anxiety rescue which she takes rarely as propranolol did not seem strong enough. She also is on lorazepam at 2 mg which she took recently for sleep. She went through a break-up and was struggling with insomnia. She reports that now she is not taking the lorazepam and she is sleeping well. She continues on ashwaganda and magnesium for adrenal fatigue. 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 She had a telehealth with her media marketing coordinator and reports her arthritis seems under very good control on Cosentyx. He wanted us to do some labs today related to the Cosentyx. She would like to have a muscle relaxant on hand as sometimes she gets very stiff by the end of the day if she has been stressed or has physically overdone it. Sarah Odell NP, [address] [employer] [facility], [place], [address], [facility] [place] Child and Family [facility] 08/07/2023 12:47:25 OBGyn Episode No OBEpisode recorded.
--- OUTSIDE RECORDS SUMMARY | 2023-08-07 12:22 | XMS_ITS | Continuity of Care Document ---
Author Organization [facility] Address [address] [place] [address] Phone Care Team Providers Care Plastics Technician Name Role Phone Charlene Aj Unavailable Unavailable [...] Mod [facility], [address], [place] [employer], [id number], [place] tel:[phone] [facility] [place] Other intervertebral disc degeneration, lumbar regionOther spondylosis, thoracic regionAnkylosing spondylitis of thoracolumbar region 1 Marianna Chang. [facility], [address] [place] [address] [address], [place], [place], [id number] , [place]. tel:[phone] Referring Provider: Charlene Cabral, [facility] [address] [place] [address] [address], [place], [address] . tel:[phone] Family History Family Member Type Diagnosis Age At Onset No Information Payers Payer name Insurance type Covered democrat ID Abraham RECIO (s) [id number] Social History Type Description Quantity Date Captured [...]
--- OUTSIDE RECORDS SUMMARY | 2023-08-07 12:22 | XMS_ITS | Data Portability ---
Author Organization [place] - [facility], Main Office Address [address] [facility] [place] [address] Assessment Encounter Date Assessment Date Assessment LastModified by Organization Details LastModified Time 07/21/2018 07/21/2018 1. Psoriasis: Overall very good to excellent clearance on Cosentyx 300 mg once monthly. We discussed the benefits that the Cosentyx has offered for her skin. We reviewed her request to give up some of these benefits to look for an alternative approach to her joints. My concern is an alternative approach may not offer any greater effectiveness for her joints and we may lose ground on the skin aspect. For the scaling on the eyebrows and lower eyelid. It almost has features of eczema. She has no prior history of eczema. We have recommended Eucrisa samples every night. Given samples. 2. Psoriatic arthritis with features of ankylosing spondylitis. She has seen mild improvement if no improvement at all in the back, improvement of the hips is noted. This is her primary focus today. We reviewed the following options. Changing the dosing of Cosentyx to 150 mg every 2 weeks and adding in Otezla or methotrexate. She was worried about compliance with Otezla being taken twice daily. She feels more comfortable with methotrexate the intramuscular version injected subcutaneously every week. Start at 0.8 mL once weekly. We reviewed liver toxicity, CBC abnormalities, fatigue. There should be minimal gastrointestinal symptoms as were using the subcutaneous approach. She had labs recently in the spring that were fine. Her labs on cyclosporine were all adequate and acceptable. Therefore no baseline laboratories will be performed today. We will see her back in 1 month. At that time we hope to see at least a 20% improvement in the joints. Our goal would be to maintain Cosentyx and methotrexate for at least 1- 2 years. In time consider tapering away the methotrexate. Methotrexate is a medication that has been in medicine for over 40 years now, and although it is a chemotherapy medication, it is almost never used for its original purpose. Methotrexate has been used for Psoriasis and Rheumatoid Arthritis for 40 years now, FDA approved for psoriasis around 1971. It has been used in dozens of other dermatologic conditions and in rheumatology. IMPORTANT THINGS TO KNOW. 1. You will be taking your methotrexate pills one day a week Often in a divided dose with some of the pills with breakfast and some with supper. Many patients who do not work on the weekends often take half the pills on Monday night with supper and the other half on Monday morning with breakfast. You can decide on the day of the week etc. 2 We do have our patients take folic acid 7 days a week. Please make sure you have gotten a prescription for this. 3. Common side effects including feeling tired (often the day after the medication) or nauseated. In most cases it is mild, and after a few weeks it tends to improve or stop happening. But if it is interfering with your functioning or leading to vomiting etc, please call us. 4 Important side effects include watching your liver with regular blood tests. It is very rare in our experience to bring harm to your liver, but mandatory blood work and regular doctor visits are required to protect you and monitor the medication. The risk of damaging your liver is very low, and there is usually plenty of warning with regular blood tests and occasional doctors?? visits. There are many patients how have taken methotrexate for decades for rheumatoid arthritis and psoriasis, I personally have meet several whom have taken the medication for 25 plus years and are doing great. With regular blood tests ( at the beginning, one month in , then after that every 3 months) and minimal alcohol intact these problems can usually be avoided. Rarely methotrexate can affect your blood count, this is also very rare. But if you notice the sudden development of pale skin, weakness, bleeding gums or nose call us immediately. This is very rare. Given written material. Total time today 50 minutes 80% to 90% [id number] counseling. Not available 07/21/2018 14:10:58 08/20/2018 08/20/2018 1. Psoriasis sca lp severe recalcitrant under good control with Cosentyx. 2. History of psoriatic arthritis identified radiologically in the hips responded well to Cosentyx. 3. Pain mid back left side radiating. Unresponsive to a consent takes in the new addition of methotrexate. We discussed her options. I am concerned that the mid back pain is not consistent with psoriatic arthritis. She does have a mild curvature of the spine. No clear scoliosis. But I would like her to have an orthopedic evaluation. The nature of the pain, is radiating features with unilateral's nature strays away from psoriasis. This high on the back. Or psoriatic arthritis. Chosen increase the methotrexate to 1 mL/week. She will obtain a CBC and CMP in [place]. She will do this for 4 weeks. She is also obtain an orthopedic evaluation. If things do not improve in 1 month I recommend we completely discontinue methotrexate but maintain the Cosentyx for its benefit to her skin in her hips. Follow appears to be arranged pending orthopedic evaluation. If doing well plan follow-up at [place]. API-69 Not available 08/20/2018 23:34:42 Plan of Treatment Reminders Order Date Submit Date Provider Last Modified By Organization Details Last Modified Time Details Appointments None recorded. Lab None recorded. Referral None recorded. Procedures None recorded. Surgeries None recorded. Imaging None recorded. Medication Orders methotrexa te sodium 25 mg/mL injection solution 2018 019 [id number], [address] [place], [address], 0 11:43:38 Cosentyx Pen 300 mg/2 Pens (150 mg/mL) [facility] 2018 019 INTERFACE [facility], [address] [place] [address], [address], 9 14:01:10 methotrexa te sodium 25 mg/mL injection solution 2018 019 API[id number], [address] [place], [address], 0 11:43:38 Cosentyx Pen 300 mg/2 Pens (150 mg/mL) [facility] 2019 020 INTERFACE [facility], [address] [place] [address], [address], 0 12:53:22 Patient TargetsNo targets recorded. Patient Instructions Encounter Date Encounter Id Patient Instructions Last Modified By Organization Details Last Modified Time 07/21/2018 [id number] ankylosing spondylitis: care instructions Not available 07/21/2018 14:01:05 ankylosing spondylitis: exercises Not available 07/21/2018 14:01:05 psoriasis: care instructions Not available 07/21/2018 14:01:05 Reason for Referral None Reported. Medical Equipment None Reported. Allergies No known drug allergies Medications Name Sig Start Date Stop Date Status Note LastModified by Organization Details LastModified Time [place] Thyroid 60 mg tablet TAKE 1 TABLET BY MOUTH EVERY DAY active Not Available Not Available No t Available citalopram 40 mg tablet TAKE 1 TABLET BY MOUTH EVERY DAY active Not Available Not Available No t Available sertraline 100 mg tablet TAKE 1 TABLET BY MOUTH EVERY DAY active Not Available Not Available No t Available methotrexat e sodium 25 mg/mL injection solution TAKE 0.8 ML BY INJECTION ROUTE WEEKLY 06/28 completed Not Available Not Available Not Available propranolol 10 mg tablet active Not Available Not Available Not Available citalopram 20 mg tablet TAKE 1 TABLET BY MOUTH EVERY DAY active Not Available Not Available No t Available methotrexat e sodium 2.5 mg tablet 08/20 completed Not Available Not Available Not Available cephalexin 500 mg capsule 06/28 completed Not Available Not Available Not Available fluoxetine 10 mg capsule 06/28 completed Not Available Not Available Not Available mupirocin 2 % topical ointment 06/28 completed Not Available Not Available Not Available cyclosporin e modified 100 mg capsule 06/28 completed Not Available Not Available Not Available fluoxetine 20 mg capsule 06/28 completed Not Available Not Available Not Available sertraline 50 mg tablet TAKE 1 TABLET BY MOUTH ONCE DAILY. active Not Available Not Available No t Available sulindac 200 mg tablet active Not Available Not Available Not Available Topamax 100 mg tablet TAKE 1 TABLET BY MOUTH EVERY DAY active Not Available Not Available No t Available cholecalcif natalia (vitamin D3) 1,250 mcg (50,000 unit) capsule TAKE 1 CAPSULE BY MOUTH ONCE A WEEK FOR 1 MONTH. THEN TAKE 2000 IU ONCE DAILY active Not Available Not Available No t Available Cosentyx Pen 300 mg/2 Pens (150 mg/mL) subcutaneou s INJECT TWO PENS SUBCUTANE OUSLY EVERY 4 WEEKS. REFRIGERA TE. ALLOW 15 TO 30 MINUTES AT ROOM TEMP PRIOR TO ADMINISTR ATION. active Not Available Not Available No t Available Vitals None Recorded Social History Question Answer Notes LastModified by Organizat ion Details LastModified Time Tobacco Smoking Status Never Smoker Not Available [facility] 12/17/2019 03:34:36 What Is Your Level Of Alcohol Consumption? None [id number] Information not available 12/17/2019 What Is Your Level Of Caffeine Consumption? Occasional [id number] Information not available 12/17/2019 What Was The Date Of Your Most Recent Tobacco Screening? 08/20/2018 [id number] Information not available 12/17/2019 How Much Tobacco Do You Smoke? No [id number] Information not available 12/17/2019 Sex: Unknown Functional Status None recorded. Mental Status None recorded. Family History Relationship Description Onset Age of this Age Resolved Age Notes Maternal Uncle Psoriasis 15 Maternal Aunt Psoriasis 13 Maternal Grandmother Diabetes mellitus 70 Mother Hypertensive disorder 30 Medical History Condition Response Diabetes N Bleeding Disorder N Squamous Cell Carcinoma N Arthritis N Blood Clot N AIDS/HIV N Tuberculosis N Cancer N Stroke N Thyroid Problems N Melanoma N Asthma N Pacemaker N Anemia N Basal Cell Carcinoma N Skin Cancer N Hepatitis N Liver Disease N Heart Disease N Pulmonary Embolism N Hypertension N Kidney Disease N Gynecological HistoryNo gynecological history recorded. Obstetrics History GPAL:G 0 P 0 0 0 0 Past Encounters Encounter ID Performer Location Encounter Start Date Encounter Closed Date Diagnosis/Indication Diagnosis SNOMED-CT Code [id number] Sandra Winters MD Main Office [address] [address] 07/21/2018 13:04:19 07/22/2018 19:11:35 Psoriasis [id number] Psoriatic arthritis 1563 [id number] Ankylosing spondylitis [id number] Sandra Winters MD Main Office [address] [address] 08/20/2018 18:13:20 08/26/2018 17:44:44 Psoriasis vulgaris [id number] Thoracic back pain [id number] Sandra Winters MD Main Office [address] [address] 06/29/2019 11:28:42 07/02/2019 23:33:05 Psoriasis [id number] Psoriatic arthritis 1563 [id number] Health Concerns Section Related Observation LastModified by Organization Detai ls LastModified Time None Recorded Concern Status LastModified by Organization Details LastModified Time None Recorded Advance Directives Directive None Recorded Payers Encounter Date Sequence Insurance Name Policy Number Policy Kasper Covered Member ID Kasper Member ID Guarantor Name 07/21/2018 1 [employer] (POS) [id number] Wyatt [facility] [id number] Melissa Morin Wirfs 08/20/2018 1 [employer] (POS) [id number] Wyatt [facility] [id number] Melissa Morin Wirfs 06/29/2019 1 [employer] (POS) [id number] Wyatt [facility] [id number] Melissa Morin Wirfs Notes Date Note Type Note Provider Name and Address Organization Details Recorded Time 07/21/2018 text/html HPI Notes: 22-year-old female presents today for evaluation of her psoriasis and what is been diagnosed as ankylosing spondylitis/psoriati c arthritis prior to our meeting. We have initiated previously Neoral short-term while instituting Cosentyx simultaneously as her symptoms were quite bothersome last fall. We comanage her care with Dr. Michael in [facility]. The patient attends school at [employer] in [facility], studying pharmacy. She has noted almost complete clearance of her skin with the Cosentyx 300 mg once monthly. Except for some scaling which developed overnight in the eyebrows, slightly below the eyebrows and in the infraorbital regions bilaterally. Minimal redness or pruritus with the symptoms. No direct treatment for these scaly patches. Her greatest concern is her back. She notes continued pain in her hips and back. Mid back and left side. Exacerbated by standing at work. In the past it was her hips were more uncomfortable to the point where the pain altered her gait. The Cosentyx seems to have helped with this but now her mid back with radiation to the left side is a fairly constant pain that can be moderate to severe. Minimal relief with massage and direct pressure. She expresses today she would give up control of her skin psoriasis for improvement in her psoriatic arthritis features. Past medical history: Anxiety. The psoriasis, and was been diagnosed with psoriatic arthritis. She has had imaging according to mother of her back. Social history: Does not drink much at all. Is sexually not active currently. Does not smoke. Attends school at [employer] studying pharmacy. Family history: Sister with acne and also with features of psoriasis. Review of systems: Overall feels in good health except the above-noted pain. In the above-noted dryness on the eyebrows and infraorbital regions. Small joints of the hands and feet are not painful. There is no swelling in the joints. There is no rash associated with the back pain. No fevers, no cough no swollen glands no shortness of breath no sputum. Sandra Winters MD [address],[place], [address], [facility] 07/21/2018 14:11:19 08/20/2018 text/html HPI Notes: 23-year-old female with a known history of recalcitrant psoriasis and potentially psoriatic arthritis in the hips returns for follow-up of potential psoriatic arthritis symptoms in the mid back. She notes no improvement with her mid back symptoms on the Cosentyx and now after 1 month of methotrexate 20 mg weekly. Difficulties with the subcutaneous injections. No nausea, no fatigue, no side effects at all. But notes no improvement at all with the back pain. Back pain it should be noted he is mid back not lower back radiates occasionally along the entire left rib In the intercostal space. No associated redness or swelling. She feels the psoriatic arthritis symptoms of her hips were which were diagnosed radiologically now moved to her back. Her past medical history social history, family history unchanged in the interim. Sandra Winters MD [address],[facility] [place], [address], [facility] 08/26/2018 17:44:34 06/29/2019 text/html HPI Notes: Retur ns a follow-up of her severe scalp psoriasis under excellent control with Cosentyx 150 mg every other week. She notes her skin is doing excellent. She is very happy with this. 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 She now notes and review of systems some small joint pain in the fingers. Her hips are still stiff but not as bad as before. Has had physical therapy, orthopedic evaluation. The concern is some of the small joints may be progressing psoriatic arthritis. 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 Her and her significant other currently spending some time apart. Does not smoke. No children. Family history Sister with psoriasis and acne. Past medical history reviewed includes mild anxiety. Sandra Winters MD [address] [place] [address],[facility], [place], [address], [facility] 07/28/2019 12:43:24 OBGyn Episode No OBEpisode recorded.
--- OUTSIDE RECORDS SUMMARY | 2023-08-07 12:22 | XMS_ITS | Continuity of Care Document ---
Author Organization [facility] Address [address] [place] [address] Phone Care Team Providers Care Transaction Coordinator Name Role Phone Skyler Mccoy MD Unavailable Unavailable Allergies, Adverse Reactions, Alerts Substance Reaction Status Criticality No Known Allergies Active No Inform ation Medications Medication Instructions Dosage Effective Dates (start - stop) Status Comments Cosentyx UnoReady Pen 300 mg/2 mL (150 mg/mL) subcutaneous inject (300MG) by subcutaneous route every 4 weeks in the abdomen, thigh, or outer area of upper arm (rotate sites) 300 MG - Active vitamin B complex tablet - Active ashwagandha extract 120 mg capsule - Active clonidine HCl 0.1 mg tablet take 1 tablet by oral route every day as needed - Active multivitamin tablet take 1 tablet by oral route every day with food - Active Zoloft 50 mg tablet take 3 tablet by oral route every day 150 MG - Active lorazepam 2 mg tablet as needed - Active Cosentyx Pen 150 mg/mL subcutaneous inject 2 milliliter by subcutaneous route every 4 weeks in the abdomen, thigh, or outer area of upper arm (rotate sites) 300 MG - No Longer Active Cosentyx Pen 150 mg/mL subcutaneous inject 2 milliliter by subcutaneous route every 4 weeks in the abdomen, thigh, or outer area of upper arm (rotate sites) 300 MG - No Longer Active Procedures Procedure Date Office/Outpatient Visit, Est Office/Outpatient Visit, Est Routine Venipuncture Assay Of Serum Albumin Assay Of Creatinine Transferase (Ast) (Sgot) Alanine Amino (Alt) (Sgpt) Complete Cbc, Automated Office/Outpatient Visit, Est Office/Outpatient Visit, Est Routine [...] Consultants , [address], [place], [address], [place] tel:[phone] [facility] , No Information 4 Nadine Holland. [facility] [address], [place], [address], [place]. tel:[phone] Office/Outpa tient Visit, Est [facility] , [address], [place], [address], [place] tel:[phone] Telehealth Psoriatic spondylitis (chief complaint)Mi dback pain (chief complaint)Mo nitor Chronic High Risk Meds (chief complaint) Psoriatic spondylitisO ther intermediate (current) drug therapyCouns malou 4 Nadine Holland. [facility] [address], [place], [address], [place]. tel:[phone] Referring Provider: Skyler Oropeza, [facility] [address], [place], [address]. tel:[phone] Office/Outpa tient Visit, Est [facility] , [address], [place], [address], [place] tel:[phone] [facility] , Psoriatic spondylitis (chief complaint)Mi dback pain (chief complaint)Mo nitor Chronic High Risk Meds (chief complaint) Psoriatic spondylitisO ther terminologist (current) drug therapyPain in right hipCounselin g 3 Nadine Holland. [facility] [address], [place], [address], [place]. tel:[phone] Referring Provider: Skyler Oropeza, [facility] [address], [place], [address]. tel:[phone] Office/Outpa tient Visit, Est [facility] , [address], [place], [address], [place] tel:[phone] Telehealth Psoriatic spondylitis (chief complaint)Mi dback pain (chief complaint)Mo nitor Chronic High Risk Meds (chief complaint) Psoriatic spondylitisO ther dorsalgiaOth er intermediate (current) drug therapy 2 [place]. [facility] [address], [place], [address], [place]. tel:[phone] Referring Provider: Alexsander Slater, [facility] [address], [place], [address]. tel:[phone] Office/Outpa tient Visit, Est [facility] , [address], [place], [address], [place] tel:[phone] [facility] , Back pain (chief complaint)Ps oriatic spondylitis (chief complaint) Psoriatic spondylitisO ther dorsalgiaOth er terminologist (current) drug therapyLong term (current) use of non-steroida l anti-inflamm atories (NSAID) 1 [place]. [facility] [address], [place], [address], [place]. tel:[phone] Referring Provider: Alexsander Slater, [facility] [address], [place], [address]. tel:[phone] Office/Outpa tient Visit, New [facility] , [address], [place], [address], [place] tel:[phone] [facility] , Back pain (chief complaint) Psoriatic spondylitisO ther dorsalgiaOth er intermediate (current) drug therapy 1 [place]. [facility] [address], [place], [address], [place]. tel:[phone] Referring Provider: Alexsander Slater, [facility] [address], [place], [address]. tel:[phone] [facility] , [address], [place], [address], [place] tel:[phone] [facility] , No Information 1 [place]. [facility] [address], [place], [address], [place]. tel:[phone] Referring Provider: Alexsander Slater, [facility] [address], [place], [address]. tel:[phone] Family History Family Member Type Diagnosis Age At Onset Maternal uncle Problem psoriasis Sister Problem psoriasis Maternal grandfather Problem psoriasis Maternal aunt Problem psoriasis with arthropathy Immunizations Vaccine Date Status Comments COVID-19 Pfizer administered Note: 1 ; Source: Other Provider Payers Payer name Insurance type Covered republican ID Authoriza tion(s) No Information Social History Type Description Quantity Date Captured Comments Sex Female Smoking Status No Information Chief Complaint And Reason For Visit No Information Reason For Referral Reason For Referral No Information History Of Present Illness Encounter Date Complaint History Of Prese nt Illness Psoriatic spondylitis Midback pain Monitor Chronic High Risk Meds Psoriatic spondylitis Midback pain Monitor Chronic High Risk Meds Psoriatic spondylitis Midback pain Monitor Chronic High Risk Meds Back pain Psoriatic spondylitis Back pain Functional Status Date Functional Assessmen t No Information Medications Administered Medication Instructions Dosage Effective Dates (start - stop) Status Comments Cosentyx Pen 150 mg/mL subcutaneous inject 2 milliliter by subcutaneous route every 4 weeks in the abdomen, thigh, or outer area of upper arm (rotate sites) 300 MG - No Longer Active Instructions Date Instruction Additional Infor mation Continue Cosentyx every 4 weeks. Related to Psoriatic spondylitis Continue treatment s trategies under the guidance of [facility]. Related to Other dorsalgia Safety monitoring la boratory studies will include occasional creatinine, AST and hgb/CBC. 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 Related to Other dorsalgia [facility]. Related to Psoriatic spondylitis Assessments Type Assessment Date No Information Patient Care Teams Name Effective Dates (start - stop) Status Members No Information
== END 2023-08-07 12:20 | disposition home or self-care (01) ==
LOC: US 12:20
PROVIDERS: PCP Nurse Practitioner Adult Health; Visit Provider Otolaryngology
DX: R59.9 Enlarged lymph nodes, unspecified (principal)
CPT/HCPCS: 76536

== ENCOUNTER 2023-12-15 08:16 | Outpatient (CLI) | payer MEDICAID, SELFPAY ==
--- NOTE | 2023-12-15 08:15 | CRLHL7_ITS ---
For Patients: As a result of the Century Cures Act, medical imaging exams and procedure reports are released immediately into your electronic medical record. You may view this report before your referring provider. If you have questions, please contact your health care provider. INDICATION: Enlarged lymph nodes, r/o thyroid mass COMPARISON: 01/03/2023, 09/20/2022 TECHNIQUE: Louis scale and color Doppler images were acquired of the thyroid gland. FINDINGS: The thyroid gland demonstrates normal uniform echogenicity and has a smooth outer contour. The right lobe measures 5.1 x 1.5 x 1.9 cm and the left lobe measures 5.3 x 1.1 x 1.8 cm in size. The isthmus measures 4 millimeters. There are no suspicious masses or nodules. The color Doppler images demonstrate normal vascularity. Mildly prominent bilateral submandibular lymph nodes are again noted measuring 2.6 x 0.8 x 1.5 cm on the right and 1.5 x 0.9 x 1.1 cm on the left. IMPRESSION: Normal thyroid ultrasound. No thyroid nodule. Mildly prominent bilateral cervical lymph nodes. Dictated by Shayne Aguirre MD @ 12/15/2023 12:56:10 PM (Electronically Signed)
--- OUTSIDE RECORDS SUMMARY | 2023-12-15 08:21 | XMS_ITS | Continuity of Care Document ---
Author Organization [facility] Child an d Family [facility], Main Office Address [address] [place] [address] Assessment No assessment recorded. Plan of Treatment Reminders Order Date Submit Date Provider Last Modified By Organization Details Last Modified Time Details Appointments None record ed. Lab None record ed. Referral None record ed. Procedures None record ed. Surgeries None record ed. Imaging None record ed. Medication Orders None record ed. Patient TargetsNo targets recorded. Patient InstructionsNo instructions recorded. Reason for Referral None Reported. 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 Active 2021 Not Available [facility] 3 12:54:36 Generaliz ed anxiety disorder 72487962 Active 2021 Not Available [facility] 3 12:54:36 Fatigue 54457827 Active Fatigue; IsAcute: Unspecifie d Deleted: 0 Not Available [facility] 3 12:54:36 Goiter 2211107 Active Goiter; IsAcute: Unspecifie d Deleted: 0 Not Available [facility] 3 12:54:36 Anxiety 92496421 Active Anxiety; IsAcute: Unspecifie d Deleted: 0 Not Available [facility] 3 12:54:36 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 Scheuerman n osteochond rosis; IsAcute: Unspecifie d Deleted: 0 Not Available [facility] 3 12:54:36 Vitamin D deficienc y 37429411 Active Vitamin D deficiency ; IsAcute: Unspecifie d Deleted: 0 Not Available [facility] 3 12:54:36 Hypothyro idism 17612731 Active Hypothyroi dism; IsAcute: Unspecifie d Deleted: 0 Not Available [facility] 3 12:54:36 Vegan Active Strict vegetarian diet; IsAcute: Unspecifie d Deleted: 0 Not Available [facility] 3 12:54:36 Psoriatic arthritis with spine involveme nt 803484540 Active Psoriatic arthritis with spine involvemen t; IsAcute: Unspecifie d Deleted: 0 Not Available [facility] 3 12:54:36 Candidias is of mouth 11870610 Active 2023 Sarah Odell, AIRLINE ATTENDANT, [address] [place], [address] , [facility] 19:06:20 Problem Notes None recorded. Medical Equipment None [...] completed Not Available Not Available Not Available Latvian encephali tis vaccine please administ er for [...] Not Available Not Available Not Avai lable [place] Thyroid 60 mg tablet TAKE 1 TABLET BY MOUTH EVERY DAY 04/27 completed Not Available Not Available Not Available fluconazo le 100 mg tablet TAKE 2 TABLETS BY MOUTH FOR 1 DOSE. THEN 1 TAB BY MOUTH ONCE DAILY X13 DAYS 10/25 completed Not Available Not Available Not Available nystatin 100,000 unit/mL oral suspensio n TAKE 2 ML BY MOUTH 4 TIMES DAILY FOR 7 DAYS 10/25 completed Not Available Not Available Not Available clonidine HCl 0.1 mg tablet 1-2 [...] 72 HOURS IF SYMPTOMS ARE STILL PRESENT 10/25 completed Not Available Not Available Not Available atovaquon e 250 mg-progua nil 100 mg tablet PLEASE SEE ATTACHED FOR DETAILED DIRECTIO NS 09/23 completed Not Available Not Available Not Available prednison e 20 mg tablet one po qam x 5 days then d/c 10/25 completed Not Available Not Available Not Available sertralin e 100 mg tablet TAKE 1.5 TABLETS BY MOUTH DAILY active Not Available Not [...] Time Tobacco Smoking Status Never Smoker Kaylie seymour [facility] 03/30/2021 10:15:46 Are You Currently Employed? No [email or web address] Information not available 09/23/2022 What Is The Highest Grade Or Level Of School You Have Completed Or The Highest Degree You Have Received? [id number] In [place] [employer] [email or web address] Information not available 09/23/2022 What Is Your Relationship Status? Single [email or web address] Information not available 09/23/2022 Are You Sexually Active? No Sexual Preference Female Information not available 09/23/2022 Are You Passively Exposed To Smoke? No Information not available 04/27/2021 Are There Any Smokers In Your House? No Information not available 04/27/2021 Are You Currently In School? Yes [email or web address] Information not available 09/23/2022 Sex: Unknown Functional Status None recorded. Mental Status None recorded. Family History Nothing Reported Notes:MGM: HTN, hyperlipidem iaPsoriasis---sister, momAnxiety---mom Medical History No medical history recorded. Gynecological HistoryNo gynecological history recorded. Obstetrics History GPAL:G 0 P 0 0 0 0 Immunizations Vaccine Type Date Status Provider Name and Address Organization Details Recorded Time SARS-COV-2 (COVID-19) vaccine, UNSPECIFIED 01/13/2023 [facility] 01/17/2023 17:39:28 influenza, unspecified formulation 11/10/2023 completed Marley Blair RN [address] [place], [address], [facility] Family [facility] 11/13/2023 13:22:29 COVID-19, mRNA, LNP-S, PF, 50 mcg/0.5 mL dose 11/10/2023 completed Marley Blair RN [address] [place], [address], [facility] 11/13/2023 13:23:05 Past Encounters None Reported. Health Concerns Section Related Observation LastModified by Organization Detai ls LastModified Time None Recorded Concern Status LastModified by Organization Details LastModified Time None Recorded Payers Encounter Date Sequence Insurance Name Policy Number Policy Kasper Covered Member ID Kasper Member ID Guarantor Name 10/05/2023 1 [facility] [id number] Carin Corriganching [id number] [facility] Notes Date Note Type Note Provider Name and Address Organization Details Recorded Time 10/05/2023 text/html HPI Notes: Zoila Smith, I know we briefly talked on my peds rotation about my big tonsils. They are still super big and they have not gone down at all. They are to the point that they are almost touching my uvula and it is harder to breathe sometimes at night. The white exudate has gone away and I tested negative for strep on day 1 of symptoms. My other symptoms come and go: very very mild sore throat, earache, headache, nasal drainage, occasional abdominal pain, and a bit of fatigue. The right lymph node is still huge and hurts now and then. I have never had a fever or petechiae or a rash. The symptoms come and go. Do I need to get tested for mono or do you think this is just being exposed to the kids/run down from school? I am going on week five of symptoms. I am doing all the conservative measures but is there anything more I can do? I scheduled an appointment with you just in case I don't get better on 10/25. ??? Thank you for your input. Ignacioy\ Sarah Odell NP, [address] [facility] [facility], [place], [address], [facility] Child and Family [facility] 10/06/2023 17:22:00 OBGyn Episode No OBEpisode recorded.
--- OUTSIDE RECORDS SUMMARY | 2023-12-15 08:21 | XMS_ITS | Clinical Summary ---
[facility] Address [address] [place] [address] Care Team Providers Care Care Mgr Name Role Phone No Primary/Referring, Phy Primary Care Provider Unavailable Source Comments You are receiving this document as you are listed as the primary care provider,follow-up provider, or the patient has been referred to you for consultation.This is in compliance with the Medicare and[facility] EHR Incentive Program,which states Providers who transition their patient to another setting of careor provider of care or refers their patient to another provider of care shouldprovide summary care record for each transition of care or referral. [employer] Allergies No known active allergies Medications Medication [...] Formulation 04/27/1998, 998,1997 IPV (Polio) 07/31/2002 Influenza I2I4-87 01/01/2009 Influenza IIV4 (Quadrivalent ) 0.5mL (83443) 09/28/2021,11/10/2020 Influenza LAIV3 2-49 years (Flumist) 12/11/2007 JE (IXIARO) 10/20/2021,10/13/2021 MCV4 (Menactra) 08/06/2015,07/30/2009 [...] T Respiratory Rate 18 04/23/2020 8:32 PM ONLINE COMMUNICATIONS SPECIALIST Oxygen Saturation 100% 04/23/2020 8:32 PM ONLINE COMMUNICATIONS SPECIALIST Inhaled Oxygen Concentration - - Weight 76.2 [...] Preventive Visit 07/26/2015 COVID-19 Vaccine ( season) 2023 10/27/2021, 04/07/2021, 09/28/2020, Additional history exists Influenza (#1) 2023 09/28/2021, 10/15, 11/19/2019, Additional history exists DTaP/Tdap/Td (4 - Tdap) 08/22/2029 08/23/19, 07/30/2009, 07/31/2002 Zoster/Shingles (1 of 2) 07/26/2047 HepA Completed 07/30/2009, 07/24/2007 HPV Vaccine Completed 01/22/2014, 09/13, 07/23/2013 MCV4 Completed 08/06/2015, 07/30/2009 HepB Completed 10/27/2021, 09/13, 04/27/1998, Additional history exists Hib Aged Out No longer eligi ble based on patient's age to complete this topic Infant RSV Aged Out No longer eligi ble based on patient's age to complete this topic Pneumococcal Aged Out No longer eligi ble based on patient's age to complete this topic Care Teams Care Mgr Relationship Specialty Start Date End Date No Primary/Referring, Phy PCP - General 04/23/20
--- OUTSIDE RECORDS SUMMARY | 2023-12-15 08:21 | XMS_ITS | Data Portability ---
Author Organization [place] [facility], Main Office Address [address] [place] [address] Assessment Encounter Date Assessment Date Assessment LastModified [...] warning with regular blood tests and occasional doctors??? visits. There are many patients how have [...] time today 50 minutes 80% to 90% [id number] counseling. Not available 07/21/2018 14:10:58 08/20/2018 08/20/2018 [...] will obtain a CBC and CMP in [place]. She will do this for 4 weeks. She is also obtain an orthopedic evaluation. If things do not improve in 1 month I recommend we completely discontinue methotrexate but maintain the Cosentyx for its benefit to her skin in her hips. Follow appears to be arranged pending orthopedic evaluation. If doing well plan follow-up at [facility]. [email or web address] Not available 08/20/2018 23:34:42 Plan of Treatment Reminders Order Date Submit Date Provider Last Modified By Organization Details Last Modified Time Details Appointments None recorded. Lab None recorded. Referral None recorded. Procedures None recorded. Surgeries None recorded. Imaging None recorded. Medication Orders methotrexa te sodium 25 mg/mL injection solution 2018 019 [id number], [address] [place], [address], 0 11:43:38 Cosentyx Pen 300 mg/2 Pens (150 mg/mL) [facility] 2018 019 INTERFACE [facility], [address] [place] [address], [address], 9 14:01:10 methotrexa te sodium 25 mg/mL injection solution 2018 019 [id number], [address] [place], [address], 0 11:43:38 Cosentyx Pen 300 mg/2 Pens (150 mg/mL) [facility] 2019 020 INTERFACE [facility], [address] [place] [address], [address], 0 12:53:22 Patient TargetsNo targets recorded. Patient [...] Note LastModified by Organization Details LastModified Time [place] Thyroid 60 mg tablet TAKE 1 TABLET [...] Tobacco Smoking Status Never Smoker Not Available [facility] 12/17/2019 03:34:36 What Is Your Level Of Alcohol Consumption? None [id number] Information not available 12/17/2019 What Is Your Level Of Caffeine Consumption? Occasional [id number] Information not available 12/17/2019 What Was The Date Of Your Most Recent Tobacco Screening? 08/20/2018 [id number] Information not available 12/17/2019 How Much Tobacco Do You Smoke? No [id number] Information not available 12/17/2019 Sex: Unknown Functional Status None recorded. Mental Status None recorded. Family History Relationship Description Onset Age of this Age Resolved Age Notes LastModified by Organization Details LastModified Time Maternal Uncle Psoriasis 15 [email or web address] Not available 08/21/19 19 18:17:25 Maternal Aunt Psoriasis 13 [email or web address] Not faustino ilable 08/20/2018 18:17:25 Maternal Grandmother Diabetes mellitus 70 [email or web address] Not available 2018 18:17:25 Mother Hypertensive disorder 30 [email or web address] Not available 2018 18:17:25 Medical History Condition Response Diabetes N Bleeding Disorder N Squamous Cell Carcinoma N Arthritis N Blood Clot N Tuberculosis N AIDS/HIV N Cancer N Melanoma N Thyroid Problems N Stroke N Asthma N Pacemaker N Anemia N Basal Cell Carcinoma N Skin Cancer N Hepatitis N Liver Disease N Heart Disease N Pulmonary Embolism N Hypertension N Kidney Disease N Gynecological HistoryNo gynecological history recorded. Obstetrics History GPAL:G 0 P 0 0 0 0 Past Encounters Encounter ID Performer Location Encounter Start Date Encounter Closed Date Diagnosis/Indication Diagnosis SNOMED-CT Code Diagnosis ICD10 Code [id number] Sandra Winters MD Main Office [address] [address] 07/21/2018 13:04:19 07/22/2018 19:11:35 Psoriasis 5657247 L40.9 Psoriatic arthritis 1563 71136 L40.50 Ankylosing spondylitis 7143412 M45.9 [id number] Sandra Winters MD Main Office [address] [place] [address] 08/20/2018 18:13:20 08/26/2018 17:44:44 Psoriasis vulgaris 420083559 L40.0 Thoracic back pain 85186 8004 M54.6 [id number] Sandra Winters MD Main Office [address] [facility] [place] [address] 06/29/2019 11:28:42 07/02/2019 23:33:05 Psoriasis 2993965 L40.9 Psoriatic arthritis 1563 78952 L40.50 Health Concerns Section Related Observation LastModified by Organization Detai ls LastModified Time None Recorded Concern Status LastModified by Organization Details LastModified Time None Recorded Advance Directives Directive None Recorded Payers Encounter Date Sequence Insurance Name Policy Number Policy Kasper Covered Member ID Kasper Member ID Guarantor Name 07/21/2018 1 [employer] (POS) [id number] [facility] [id number] Melissa Morin [place] 08/20/2018 1 [employer] (POS) [id number] [facility] [id number] Melissa Morin [place] 06/29/2019 1 [employer] (POS) [id number] [facility] [id number] Melissa Morin [facility] Notes Date Note Type Note Provider Name [...] comanage her care with Dr. Michael in [facility]. The patient attends school at [employer] in [employer] [place] [employer], studying pharmacy. She has noted almost complete [...] of breath no sputum. Sandra Winters MD [address] [place] [address], [address], [facility] 07/21/2018 14:11:19 08/20/2018 text/html HPI Notes: [...] in the interim. 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 Her and her significant other currently spending some time apart. Does not smoke. No children. Family history Sister with psoriasis and acne. Past medical history reviewed includes mild anxiety. Sandra Winters MD [address], [place], [address], [facility] 07/28/2019 12:43:24 OBGyn Episode No OBEpisode recorded.
== END 2023-12-15 08:17 | disposition home or self-care (01) ==
PROVIDERS: PCP Nurse Practitioner Adult Health; Visit Provider Otolaryngology
DX: R59.9 Enlarged lymph nodes, unspecified (principal)
CPT/HCPCS: 76536

== ENCOUNTER 2024-04-10 10:05 | Day surgery (SDC) | payer MEDICAID, SELFPAY ==
[2024-04-10] VITALS (13 sets, daily range): BP systolic 125–157; BP diastolic 82–108; PULSE 57–89; RESP 13–20; TEMP 36.4–36.8; O2SAT 91–100; BMI 25.0
--- OUTSIDE RECORDS SUMMARY | 2024-04-10 10:08 | XMS_ITS | Patient Health Summary ---
Author Organization [facility] Address [address] [place] [address] Care Team Providers Care Holder Pile Driving Name Role Phone Unknown, Provider Primary Care Provider Unavaila ble Note from [facility],non-owned Affiliates and Associated Physician Practices is amultiple site organization consisting of ambulatory clinics and hospital sitesin [place], [place], [place] and [place]. This disclosure is being madepursuant to the Care Everywhere program and may not contain all information available regarding this patient. Last updated 17.[facility] Medications * Be aware that medications may not be up to date on this document. Alwaysverify current medications with the patient. * traMADol (ULTRAM) 50 MG tablet(Started 08/15/2016) Take 1 Tab by mouth every 6 hours as needed for Pain * FLUoxetine (PROZAC) 40 MG capsule(Started 08/06/2016) Take 40 mg by mouth once daily * trimethoprim-polymyxin B (POLYTRIM) 42695-4.1 UNIT/ML-% ophthalmic solution (Started 08/06/2016) Place 1 Drop into the right eye every 4 hours for 5 days Social History Tobacco Use Types Packs/Day Years Used Date Smoking Tobacco: Never Smokeless Tobacco: Never Sex and Gender Information Value Date Recorded Sex Assigned at Not on file Gender Identity Not on file Sexual Orientation Not on file Last Filed Vital Signs Vital Sign Reading Time Taken Comments Blood Pressure 145/92 08/15/2016 6:04 PM CDT Pulse 85 08/15/2016 6:04 PM CDT Temperature 37.1 C (98.8 F) 08/15/2016 6:04 PM CDT Respiratory Rate 18 08/15/2016 6:04 PM CDT Oxygen Saturation 96% 08/15/2016 6:04 PM CDT Inhaled Oxygen Concentration - - Weight 63.5 kg (140 lb) 08/15/2016 6:04 PM CDT Height 180.3 cm (5' 11) 08/15/2016 6:04 PM CDT Body Mass Index 19.53 08/15/2016 6:04 PM CDT Procedures * XR FOOT LEFT 3VW OR MORE(Performed 08/15/2016) * LAB(Performed 08/15/2016) * LAB(Performed 08/15/2016) * LAB(Performed 08/15/2016) Results * XR FOOT LEFT 3VW OR MORE (08/15/2016 6:37 PM CDT) Anatomical Region Laterality Modality Ankle / Foot Other Narrative 08/15/2016 6:47 PM CDT XR FOOT LEFT 3VW OR MORE, 08/15/2016 6:30 PM, [facility] INDICATION: S99.922A: Foot injury, left, initial encounter ADDITIONAL CLINICAL INFORMATION: Ordering Provider Reason for Exam: foot injury eval fx Technologist Note: Patient stated she crushed her foot between two go-carts, pain in the metatarsals. Additional: None COMPARISON: None available at the time of dictation. TECHNIQUE: Three views of the left foot are reviewed. FINDINGS: Alignment is maintained. No fracture is identified. No other acute process is seen. Reading Bolivar Verduzco Releasing Bolivar Verduzco Dictation Date Time - 08/15/2016 18:47 Hot Plate Plywood Press Laborer - NA Procedure Note Bolivar Burgess MD - 10/29/2017 XR FOOT LEFT 3VW OR MORE, 08/15/2016 6:30 PM, [facility] INDICATION: S99.922A: Foot injury, left, initial encounter ADDITIONAL CLINICAL INFORMATION: Ordering Provider Reason for Exam: foot injury eval fx Technologist Note: Patient stated she crushed her foot between twogo-carts, pain in the metatarsals. Additional: None COMPARISON: None available at the time of dictation. TECHNIQUE: Three views of the left foot are reviewed. FINDINGS: Alignment is maintained. No fracture is identified. No other acute process is seen. Reading Bolivar Verduzco Releasing Bolivar Verduzco Dictation Date Time - 08/15/2016 18:47 Hot Plate Plywood Press Laborer - NA Leo J Anup PA-C DIAGNOSTIC IMAGING ORDERABLES * LAB (08/15/2016 4:15 PM CDT) Only the most recent of3 resultswithin the time period is included. 08/15/2016 4:15 PM CDT Historical Provider MD SCANNING ONLY [facility] [address] [place], [place] Care Teams Holder Pile Driving Relationship Specialty Start Date End Date Unknown, Provider PCP - General 08/06/16
--- OUTSIDE RECORDS SUMMARY | 2024-04-10 10:09 | XMS_ITS | Clinical Summary ---
Author Organization [facility] Address [address] [place] [address] Care Team Providers Care Natural Resources Extension Educator Name Role Phone No Primary/Referring, Phy Primary Care Provider Unavailable Source Comments You are receiving this document as you are listed as the primary care provider,follow-up provider, or the patient has been referred to you for consultation.This is in compliance with the Medicare and[facility] EHR Incentive Program,which states Providers who transition their patient to another setting of careor provider of care or refers their patient to another provider of care shouldprovide summary care record for each transition of care or referral. [facility] Allergies No known active allergies Medications COSENTYX SENSOREADY, 300 MG, 150 MG/ML SOAJ 04/13/2020 Active sertraline (ZOLOFT) 100 MG tablet Take 100 mg by mouth daily. 04/13/2020 Active Active Problems Problem Noted Date Diagnosed Date Anxiety 10/13/2021 Psoriatic arthritis 10/13/2021 Immunizations Immunization Administration Dates Next Due 4vHPV (Gardasil) 01/22/2014,09/24/2013, 4 DTaP 07/31/2002 Flu Vac (3+ yrs) 11/02/2010, 0,12/07/2006,2005,12/18/2004,12/09/2003,01/13/2003 Flu Vac Preserv Free (3+yrs) 11/19/2019 HepA Ped/Adol (1-18 yrs) 07/30/2009,07/24/2007 HepB Adult (Engerix-B, 20+ y rs, 3 dose series) 10/27/2021,09/28/2021 HepB, Unspecified Formulation 04/27/1998, 998,1997 IPV (Polio) 07/31/2002 Influenza U5J6-29 01/01/2009 Influenza IIV4 (Quadrivalent ) 0.5mL (19280) 09/28/2021,11/10/2020 Influenza LAIV3 2-49 years (Flumist) 12/11/2007 JE (IXIARO) 10/20/2021,10/13/2021 MCV4 (Menactra) 08/06/2015,07/30/2009 MMR 07/31/2002 Menb (Trumenba) 11/01/2021,01/08/2016,08/06/2015 Moderna Monovalent 12+ 04/07/2021 Pfizer Bivalent 12+ 10/27/2021 Pfizer Monovalent 12+ Purple Top 09/28/2020,02/0 02/2020,02/24/2020 Rabies 11/10/2021,10/20/2021,10/13/2021 Tdap 08/23/2019,07/30/2009 Typhoid (Typhim Vi, IM) 10/13/2021 Varicella 07/24/2007 Social History Tobacco Use Types Packs/Day Years Used Date Smoking Tobacco: Never Assessed Comments No Sex and Gender Information Value Date Recorded Sex Assigned at Not on file Legal Sex Female 11:03 AM CDT Gender Identity Not on file Sexual Orientation Not on file Last Filed Vital Signs Vital Sign Reading Time Taken Comments Blood Pressure 149/101 10/13/2021 10:08 AM CDT Pulse 104 10/13/2021 10:08 AM CDT Temperature 36.9 C (98.4 F) 04/23/2020 8:32 PM COST MANAGER Respiratory Rate 18 04/23/2020 8:32 PM COST MANAGER Oxygen Saturation 100% 04/23/2020 8:32 PM COST MANAGER Inhaled Oxygen Concentration - - Weight 76.2 [...] Completed 10/27/2021, 09/13, 04/27/1998, Additional history exists Meningococcal B Completed 11/01/2021, 12/15, 08/06/2015 Hib Aged Out No longer eligi ble based on patient's age to complete this topic Pneumococcal Aged Out No longer eligi ble based on patient's age to complete this topic Insurance [employer] Care Teams Natural Resources Extension Educator Relationship Specialty Start Date End Date No Primary/Referring, Phy PCP - General 04/23/20
--- OUTSIDE RECORDS SUMMARY | 2024-04-10 10:09 | XMS_ITS | Clinical Summary ---
Author Organization [facility] Address [address] [place] [address] Care Team Providers Care Neuro Intensivist Physician Name Role Phone Unknown, Provider Primary Care Provider Unavaila ble Source Comments [facility],non-owned Affiliates and Associated Physician Practices is amultiple site organization consisting of ambulatory clinics and hospital sitesin [place], [place], [place] and [place]. This disclosure is being madepursuant to the Care Everywhere program and may not contain all information available regarding this patient. Last updated 17.[facility] Medications * Be aware that medications may not be up to date on this document. Alwaysverify current medications with the patient. Medication Sig Dispensed Refills Start Date End Date Status traMADol (ULTRAM) 50 MG tablet Take 1 Tab by mouth every 6 hours as needed for Pain 10 tablet 0 08/15/2016 Active FLUoxetine (PROZAC) 40 MG capsule Take 40 mg by mouth once daily 08/06/2016 Active trimethoprim-polymyxi n B (POLYTRIM) 37010-9.1 UNIT/ML-% ophthalmic solution Place 1 Drop into the right eye every 4 hours for 5 days 1 bottles 0 08/06/2016 Active Social History Tobacco Use Types Packs/Day Years [...] Mass Index 19.53 08/15/2016 6:04 PM CDT Plan of Treatment Health Maintenance Due Date Last Done Comments PAP SMEAR 1997 HIV SCREENING 2012 HPV VACCINE (1 - 3-dose series) 2012 HEPATITIS C SCREENING 07/21/2015 DTAP/TDAP/TD VACCINES (1 - Tdap) 2016 HEPATITIS B VACCINE (1 of 3 - 19+ 3-dose series) 2016 COVID-19 VACCINE ( - 2023-2 5 season) 2023 INFLUENZA VACCINE (#1) 2023 DEPRESSION SCREENING 02/14/2024 ZOSTER VACCINE (1 of 2) 07/26/2047 HIB VACCINE Aged Out No longer eligi ble based on patient's age to complete this topic MENINGOCOCCAL (Group B) VACCINE Aged Out No longer eligible based on patient's age to complete this topic MENINGOCOCCAL VACCINE Aged Out No david alyse eligible based on patient's age to complete this topic PNEUMOCOCCAL VACCINE Aged Out No long er eligible based on patient's age to complete this topic Care Teams Neuro Intensivist Physician Relationship Specialty Start Date End Date Unknown, Provider PCP - General 08/06/16
--- OUTSIDE RECORDS SUMMARY | 2024-04-10 10:09 | XMS_ITS | Referral Summary ---
Author Organization [facility] Address [address] [place] [address] Care Team Providers Care Bending Machine Operator Name Role Phone Unknown, Provider Primary Care Provider Unavaila ble Source Comments [facility],non-owned Affiliates and Associated Physician Practices is amultiple site organization consisting of ambulatory clinics and hospital sitesin [place], [place], [place] and [place]. This disclosure is being madepursuant to the Care Everywhere program and may not contain all information available regarding this patient. Last updated 17.[facility] Medications * Be aware that medications may [...] daily 08/06/2016 Active trimethoprim-polymyxi n B (POLYTRIM) 59130-0.1 UNIT/ML-% ophthalmic solution Place 1 Drop into [...] 08/15/2016 6:04 PM CDT Plan of Treatment Not on file Care Teams Bending Machine Operator Relationship Specialty Start Date End Date Unknown, Provider PCP - General 08/06/16
[2024-04-10] MEDS: 0.9 % SODIUM CHLORIDE 500 ML 500 ML 100 ML IV ×2 (10:42→12:31)
[2024-04-10] MEDS: SODIUM CHLORIDE 0.9 % (FLUSH) 10 ML SYRINGE IVF (10:42)
--- NOTE | 2024-04-10 12:06 | W.PM.ENTPROC ---
Procedure Note Date of procedure: 04/10/24 Procedure: Preoperative diagnosis chronic tonsillitis, adenotonsillar hypertrophy, upper airway obstruction, nasal obstruction Postoperative diagnosis same Procedure adenotonsillectomy Under general endotracheal anesthesia the patient was prepped and draped in usual fashion. The McIvor mouth gag was inserted the tongue retracted forward. No submucous cleft was noted on inspection or palpation. The right and left tonsils were removed with a combination of needlepoint cautery, bipolar cautery and suction cautery. Meticulous hemostasis was achieved. The adenoid pad was visualized with a laryngeal mirror and removed with suction cautery. The patient was extubated in the operating room taken recovery in satisfactory condition. Blood loss was less than 10 mL. Surgeon: Ravindra Hurst MD
--- NOTE | 2024-04-10 12:23 | W.ANESCHARGE ---
Anesthesia Charges Start Date/Time Anesthesia Start Date: 04/10/24 Anesthesia Start Time: 11:42 Stop Date/Time Anesthesia Stop Date: 04/10/24 Anesthesia Stop Time: 12:21 Coding CPT Codes CPT Codes: ANESTH PROCEDURE ON MOUTH - 87646 ([id number]) P1 - NORMAL HEALTHY PATIENT, QZ - WHAT JOB TITLES MEAN SVC W/O DIRECTOR REGULATORY AFFAIRS BY
--- NOTE | 2024-04-10 12:37 | SUR.PHASEI ---
Patient came to PACU with a pain level of 7. Anesthesia gave some fentanyl at that time.
--- NOTE | 2024-04-10 12:38 | SUR.PHASEI ---
Patient awake and talking. Pain level a 5 after 20 minutes in PACU. Declined ice chips at this time.
--- NOTE | 2024-04-10 12:47 | SUR.PHASEI ---
Patient meets discharge criteria from PACU
[2024-04-10] MEDS: ACETAMINOPHEN 160 MG/5 ML CUP 320 MG PO (13:00)
[2024-04-10] MEDS: IBUPROFEN 100 MG/5 ML SUSP 200 MG PO (13:00)
== END 2024-04-10 14:31 | disposition home or self-care (01) ==
LOC: OR 10:06
PROVIDERS: PCP Nurse Practitioner Adult Health; Visit Provider Otolaryngology
PROC: (CPT 42821; principal; 2024-04-10 11:30)
DX: J35.01 Chronic tonsillitis (principal); J35.3 Hypertrophy of tonsils with hypertrophy of adenoids; J34.89 Other specified disorders of nose and nasal sinuses
CPT/HCPCS: 42821; 00170; 81025; 88304; A9270; J0330; J1100; J1630; J2250; J2405; J2704; J3010; J7030

== ENCOUNTER 2024-06-13 09:59 | Outpatient (CLI) | payer MEDICAID, SELFPAY | END 2024-06-13 10:00 | disposition home or self-care (01) | PROVIDERS: PCP Physician Assistant Medical; Visit Provider Physician Assistant Medical | DX: I10 Essential (primary) hypertension (principal); F41.1 Generalized anxiety disorder; R82.90 Unspecified abnormal findings in urine; Z13.0 Encounter for screening for diseases of the blood and blood-forming organs and certain disorders involving the immune mechanism; Z13.21 Encounter for screening for nutritional disorder | CPT/HCPCS: 80053; 80061; 82607; 82728; 84443; 87086 ==

== ENCOUNTER 2024-06-24 07:13 | Outpatient (CLI) | payer MEDICAID, SELFPAY ==
--- NOTE | 2024-06-24 07:15 | CRLHL7_ITS ---
For Patients: As a result of the Century Cures Act, medical imaging exams and procedure reports are released immediately into your electronic medical record. You may view this report before your referring provider. If you have questions, please contact your health care provider. INDICATION: Hypertension with white coat syndrome TECHNIQUE: Grayscale, color Doppler and spectral Doppler ultrasound of the kidneys and renal arteries performed. COMPARISON: None available FINDINGS: BILATERAL RENAL ARTERY DUPLEX ULTRASOUND ABDOMINAL AORTA: Peak systolic velocity = 127 cm/s. No aortic aneurysm. RIGHT KIDNEY: 12.4 cm in length. There is no hydronephrosis. Peak systolic velocity = 106 cm/second Renal artery to aortic peak systolic velocity ratio = 0.83 Resistive indices: Less than 0.6 Renal vein = patent LEFT KIDNEY: 9.9 cm in length. There is no hydronephrosis. Peak systolic velocity = 107 cm/second Renal artery to aortic peak systolic velocity ratio = 0.84 Resistive indices: 0.53 - 0.63 Renal vein = patent Hyperechoic nonshadowing lesion within the inferior pole of the left kidney measures 1.8 x 1.1 x 1.3 cm. IMPRESSION: No evidence of significant renal artery stenosis. 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 Dictated by Shayne Aguirre MD @ 06/24/2024 9:19:13 AM (Electronically Signed)
== END 2024-06-24 07:14 | disposition home or self-care (01) ==
PROVIDERS: PCP Physician Assistant Medical; Visit Provider Physician Assistant Medical
DX: R03.0 Elevated blood-pressure reading, without diagnosis of hypertension (principal); D17.71 Benign lipomatous neoplasm of kidney; R80.9 Proteinuria, unspecified
CPT/HCPCS: 76775; 93975

== ENCOUNTER 2024-09-02 12:31 | Outpatient (CLI) | payer MEDICAID, SELFPAY ==
[2024-09-02 23:18] LABS: Chlamydia DNA Amplified* NOT DETECTED (No Detected); GC DNA Amplified* NOT DETECTED (No Detected)
[2024-09-09 11:28] LABS: Pap Test Digital Imaging Done
== END 2024-09-02 12:32 | disposition home or self-care (01) ==
PROVIDERS: PCP Physician Assistant Medical; Visit Provider Physician Assistant Medical
DX: R03.0 Elevated blood-pressure reading, without diagnosis of hypertension (principal); F41.1 Generalized anxiety disorder; Z11.51 Encounter for screening for human papillomavirus (HPV); Z12.4 Encounter for screening for malignant neoplasm of cervix; Z11.59 Encounter for screening for other viral diseases
CPT/HCPCS: 82088; 84244; 86703; 86803; 87491; 87591; 88141; 88142; 88175